=== PATIENT | female | born 1940 | race Caucasian/White ===

== ENCOUNTER → 2016-08-19 | Outpatient (CLI) | payer OTHER ==
[~2016-08-19] MED LIST: ACET-1222 PO; ACETCAP13 PO; ALPH150C PO; ANTIVERT PO; APPL300T3 PO; ASCA500 PO; B-COTAB18 PO; CHOLTAB3 PO; COEN100C7 PO; COLO100C PO; COSAMIN DS PO; CYM/30 PO; DICY20TA35 PO; DOCU100C31 PO; FAMO40TA6 PO; GABA PO; HERB LAX PO; LCARNITINE PO; MAGN1TAB41 PO; MELA1CAP PO; MISCCAP80 PO; MULT-507 PO; NITR-5 PO; NTRGSL/4 UT; OMEG10007 PO; VALA500T60 PO; VITA10004 PO; VLM5 PO; [UNRECOGNIZED DRUG - OTHER] PO
--- NOTE | 2016-08-19 15:06 | ECHOCARDIOGRAM REPORT ---
*NOTICE TO RECEIVING DEMOCRAT AGENCY This information is strictly Confidential and protected under [place] law. [place] law prohibits you from making any further disclosure of this information unless further disclosure is expressly permitted by the written consent of the person to whom it pertains or is authorized by law. A general authorization for the release of medical or other information is not sufficient for this purpose. Hospital accepts no responsibility if the information is made available to any other person, INCLUDING THE PATIENT. Interpretation Summary * Name: DAMARIS POZO Study Date: 08/19/2016 02:00 PM BP: 155/63 mmHg * Patient Location: [facility] HR: 68 * : 1940 (M/d/yyyy) Gender: Female Height: 64 in * Age: 75 yrs Ethnicity: CA Weight: 150 lb * Ordering Physician: Ephraim William * Referring Physician: Ephraim William * Performed By: Cara Marie RDCS * * Reason For Study: MURMUR * BSA: 1.7 m2 * History: MURMUR * -- Conclusions -- * The left ventricle is normal in size. * Ejection Fraction = 60-65%. * Left ventricular systolic function is normal. * The left ventricular wall motion is normal. * There is mild concentric left ventricular hypertrophy. * Grade I diastolic dysfunction, (abnormal relaxation pattern). * There is mild tricuspid regurgitation. * Right ventricular systolic pressure is normal. Procedure Details * A complete two-dimensional transthoracic echocardiogram was performed (2D, M-mode, Doppler and color flow Doppler). Left Ventricle * The left ventricle is normal in size. * There is mild concentric left ventricular hypertrophy. * Ejection Fraction = 60-65%. * Left ventricular systolic function is normal. * The left ventricular wall motion is normal. Right Ventricle * The right ventricle is mildly dilated. * The right ventricular systolic function is normal. Atria * The left atrial size is normal. * Right atrial size is normal. * The interatrial septum is intact with no evidence for an atrial septal defect. Mitral Valve * The mitral valve is normal in structure and function. * There is no mitral regurgitation noted. Tricuspid Valve * The tricuspid valve is normal in structure and function. * There is mild tricuspid regurgitation. * Right ventricular systolic pressure is normal. Aortic Valve * The aortic valve is normal in structure and function. * No hemodynamically significant valvular aortic stenosis. * There is no significant aortic regurgitation. Pulmonic Valve * The pulmonary valve is inadequately visualized, but the Doppler data is adequate for interpretation. * There is no significant pulmonary regurgitation. Great Vessels * The aortic root is normal size. * No obvious dissection could be visualized. * The pulmonary artery is not well visualized, but is probably normal size. Pericardium/Pleural * There is no pericardial effusion. Great Vessels * The inferior vena cava is mildly dilated. Left Ventricular Diastolic Function * Grade I diastolic dysfunction, (abnormal relaxation pattern). MMode 2D Measurements and Calculations IVSd 1.3 cm IVSs 1.5 cm LVIDd 3.8 cm LVIDs 2.6 cm LVPWd 0.97 cm LVPWs 1.6 cm IVS/LVPW 1.3 FS 32.9 % EDV(Teich) 63.4 ml ESV(Teich) 24.0 ml EF(Teich) 62.1 % EDV(cubed) 56.5 ml ESV(cubed) 17.1 ml EF(cubed) 69.8 % % IVS thick 18.3 % % LVPW thick 64.7 % LV mass(C)d 139.5 grams LV mass(C)dI 80.6 grams/m\S\2 LV mass(C)s 137.7 grams LV mass(C)sI 79.6 grams/m\S\2 SV(Teich) 39.4 ml SI(Teich) 22.8 ml/m\S\2 SV(cubed) 39.5 ml SI(cubed) 22.8 ml/m\S\2 Ao root diam 3.1 cm Ao root area 7.3 cm\S\2 LA dimension 3.4 cm LA/Ao 1.1 LVAd ap4 22.4 cm\S\2 LVLd ap4 6.8 cm EDV(MOD-sp4) 59.1 ml EDV(sp4-el) 62.4 ml LVAs ap4 13.1 cm\S\2 LVLs ap4 5.9 cm ESV(MOD-sp4) 25.1 ml ESV(sp4-el) 24.8 ml EF(MOD-sp4) 57.5 % EF(sp4-el) 60.3 % LVAd ap2 24.7 cm\S\2 LVLd ap2 7.4 cm EDV(MOD-sp2) 71.2 ml EDV(sp2-el) 69.8 ml LVAs ap2 13.7 cm\S\2 LVLs ap2 6.2 cm ESV(MOD-sp2) 25.6 ml ESV(sp2-el) 25.7 ml EF(MOD-sp2) 64.0 % EF(sp2-el) 63.2 % LVLd %diff 7.6 % EDV(MOD-bp) 64.7 ml LVLs %diff 5.8 % ESV(MOD-bp) 25.7 ml EF(MOD-bp) 60.2 % SV(MOD-sp4) 34.0 ml SI(MOD-sp4) 19.6 ml/m\S\2 SV(MOD-sp2) 45.5 ml SI(MOD-sp2) 26.3 ml/m\S\2 SV(MOD-bp) 39.0 ml SI(MOD-bp) 22.5 ml/m\S\2 SV(sp4-el) 37.7 ml SI(sp4-el) 21.8 ml/m\S\2 SV(sp2-el) 44.1 ml SI(sp2-el) 25.5 ml/m\S\2 Doppler Measurements and Calculations MV E max suresh 90.7 cm/sec MV A max suresh 117.7 cm/sec MV E/A 0.77 MV dec time 0.28 sec Ao V2 max 104.9 cm/sec Ao max PG 4.4 mmHg Ao max PG (full) 1.6 mmHg LV V1 max PG 2.8 mmHg LV V1 max 83.9 cm/sec TR max suresh 205.7 cm/sec
== END | disposition home or self-care (01) ==
LOC: C.CPL 12:51
PROVIDERS: ATTEND Family Medicine
DX: R07.9 Chest pain, unspecified (principal)

== ENCOUNTER → 2016-09-04 | Outpatient (CLI) | payer OTHER ==
[~2016-09-04] MED LIST changes: +DiphenhydrAMINE HCL 50 MG/ML VIAL ONE
--- NOTE | 2016-09-05 06:59 | PAP/PSG TECHNICIAN REPORT ---
[facility] Production Tester Polysomnogram Report Study name: None Report date: 09/05/2016 Study date: 09/04/2016 Referring Physician: DR NEAL Name: DAMARIS LEÓN Interpreting Physician: Antoine Powell D.O. Date of : 1940 Production Tester: Addy Joseph RPSSUSAN. Sex: Female Age: 75 StudyType: PSG Weight: Height: 75 years, Height 5' 6" BMI: Medications: NONE LISTED Patient History PATIENT HAS HISTORY OF DAYTIME SLEEPINESS AND FATIGUE. MOST OF THE TIME, SHE CAN SLEEP 10-12 HRS A DAY AND STILL FEELS SLEEPY. SHE ALSO HAS WITNESSED APNEAS AND SNORING. SHE IS HERE TODAY FOR AN EVALUATION OF MACI. ESS = 13 RM 6 Parameters Monitored NPSG: E1-M2, E2-M1, Fp1-M2, Fp2-M1, F3-M2, F4-M2, F4-M1, C3-M2, C4-M2, C4-M1, O1-M2, O2-M2, O2-M1, T3-M2, T4-M1, P3-M2, P4-M1, CHIN1, CHIN2, HR, EKG, Legs, PFLOW, SNOR, FLOW, CFLOW, Tidal Volume, THOR, ABDO, SpO2, PLTH, CPRESS, ETCO2 Wave, ETCO2, pH Sleep Architecture Sleep Stages Time at Lights Off 10:12:22 PM STAGES Time (min.) TST (%) Time at Lights On 5:40:52 AM Wake 82.5 -- Total Recording Time (TRT) 449.00 min. N1 25.5 7 Total Sleep Period (TSP) 442.0 min. N2 236.0 64 Total Sleep Time (TST) 366.0min. N3 56.0 15 Awake Time 83.0 min. REM 48.5 13 Wake after Sleep Onset 76.5 min. Sleep Efficiency (SE) 82 % Sleep Onset Latency (YADIRA) 6.0 min. Number of Stage 1 Shifts None Awakenings 21 Stage Changes 86 Number of REM periods 2 REM 48.5 13 REM Latency 123.0 min. NREM 317.5 87 Body Position Analysis Supine Right Left Side Prone Vertical Total Sleep Time (min.) 240.1 182.7 9.2 191.84 0.0 0.0 Total Sleep Time (%) 48% 50% 3% 52 0% N/A% Total Sleep Time REM (min.) 10.0 38.5 0.0 None 0.0 0.0 Total Sleep Time NREM (min.) 164.2 144.2 9.2 None 0.0 0.0 Intermittent Wake (min.) 66.0 16.0 0.5 None 0.0 0.0 Total Sleep Period (%) 53% None None None None None Arousals Myoclonus (PLM) * Events Count Index Events Count Index Spontaneous 27 4 Events Awake (PLMW) 0 0.0 Respiratory 6 1.0 Events Asleep w/ Arousal (PLMA) 11 1.8 PLM 11 2 Events Asleep w/o Arousal (PLMS) 78 12.8 Snoring 2 0 Total Asleep 89 14.6 Total 46 8 Total 89 12 Respiratory Analysis * CA OA MA CH H RERA Total Count 0 5 0 0 21 8 26 Index 0.0 0.8 0.0 0 3.4 1 5.6 Mean Duration 0.0 18.2 0.0 0.00 21.0 15.4 19.3 Longest Duration 0.0 34.8 0.0 0.00 0.0 19.6 47.9 Respiratory Event Summary Total Supine ~Supine Right Left Prone REM NREM Apneas Count 5 0 5 5 0 N/A 5 0 Index 0.8 0 2 1.6 0.0 N/A 6 0 Hypopneas (4% Desat) Count 21 13 8 8 0 N/A 14 7 Index 3.4 4.5 3 2.6 0.0 N/A 17.3 1.3 Apneas & All Hypopneas Count 26 13 13 13 0 N/A 19 7 Index 4.3 4 4 4 0 N/A 23.5 1.3 Respiratory Events (Pallet Sorter+All Hyp+RERA) Count 26 18 16 16 0 N/A 19 7 Index 5.6 6 5 5.3 0.0 N/A 24.7 2.6 Respiratory Related Arousal Count 6 18 2 2 0 N/A 1 5 Index 1.0 1 1 1 0 N/A 1 1 Snoring Analysis Supine Right Left Prone REM NREM Total Snore duration 28.2 min Snores count 201 999 1 N/A 302 899 1,201 Snore mean duration 1.4 Sec Snores index 69 328 7 N/A 373.6 169.9 196.9 TST with snoring (%) 7.7% Desaturation Event Summary: Minimum %SpO2 Event Count Mean/Min/Max Duration(sec.) Desaturation Index % Time In Bed > 90 20 41.1 / 20.0 / 60.3 4.9 56.0 86 - 90 6 29.2 / 20.0 / 51.2 1.9 43.7 81 - 85 0 N/A 0.0 0.2 76 - 80 0 N/A 0.0 0.0 71 - 75 0 N/A 0.0 0.0 66 - 70 0 N/A 0.0 0.0 61 - 65 0 N/A 0.0 0.0 56 - 60 0 N/A 0.0 0.0 51 - 55 0 N/A 0.0 0.0 < 50 0 N/A 0.0 0.0 Total REM NREM Awake <50% 0.0 min. 0.0 min. 0.0 min. 0.0 min. 51 - 60% 0.0 min. 0.0 min. 0.0 min. 0.0 min. 61 - 70% 0.0 min. 0.0 min. 0.0 min. 0.0 min. 71 - 80% 0.0 min. 0.0 min. 0.0 min. 0.0 min. 81 - 90% 193.1 min. 11.7 min. 156.6 min. 24.8 min. 91 - 100% 246.2 min. 36.8 min. 160.1 min. 49.4 min. Average 91 92 90 92 Minimum SpO2 83 84 85 83 Desaturation Event Index 3.1 19.8 1.3 0.0 # Desat. Events below 89% 17 10 7 0 Time(%) with Saturation below 89% 11.6 1.2 8.3 2.0 Time(min.) with Saturation below 89% 50.9 5.3 36.7 9.0 Time (mins) REM (mins) NREM (mins) % of TST SpO2 Below 90% 20 13 N7 25.8 SpO2 Below 88% 11 0 0 4 Heart Rate Analysis Min (bpm) Max (bpm) Average (bpm) Awake 58 81 67 NREM 57 127 65 REM 58 79 65 Overall 57 127 65 Supplemental O2 Values Minimum O2 level: None Value Start Time End Time Production Tester Comments Mrs. León slept in the right, left and supine positions. No cardiac arrhythmia noted. Leg movements noted. No bruxism noted. Snoring was noted and scored as a 3 on a scale of 1 through 5. (0=no snoring, 5=snoring loud enough to be heard through a closed door or down the amaya way) Mrs. León awoke to use the restroom 1 time during the night. Mrs. León stated I did not sleep as well as I do when I am in my own bed. The final report will be interpreted and signed by a sleep physician. The completed physician report will then be placed in the patient medical record. Therapy (cm H2O) 0 TIB (min.) 448.5 TST (min.) 366.0 Sleep Onset (min.) 6.0 REM Onset From Sleep (min.) 123.0 Sleep Efficiency % 82 Wakefulness (%) 18 Wakefulness (min.) 83.0 NREM 1 (%) 7 NREM 1 (min.) 25.5 NREM 2 (%) 64 NREM 2 (min.) 236.0 NREM 3 (%) 15 NREM 3 (min.) 56.0 REM (%) 13 REM (min.) 48.5 # Arousals 46 Arousal Index 8 # Snore 1,201 Snore Index 196.9 AHI 4.3 AHI Supine 4 AHI Non-Supine 4 NREM AHI 1.3 REM AHI 23.5 RDI 5.6 # Obstructive Apnea 5 # Central Apnea 0 # Mixed Apnea 0 # Hypopneas 21 RERAs 8 Total Respiratory Events 34 Time Below SpO2 89% (min.) 41.9 Mean NREM SpO2 (%) 90 Mean REM SpO2 (%) 92 Mean Sleep SpO2 (%) 91 Min NREM SpO2 (%) 85 Min REM SpO2 (%) 84 Position Supine (min.) 240.1 Position Non-supine (min.) 191.8 LM Index Sleep 14.6 LM Index NREM 16.4 LM Index REM 2.5 Mean Heart Rate (bpm) 65 Min Heart Rate (bpm) 57
--- NOTE | 2016-09-09 07:59 | POLYSOMNOGRAPH REPORT ---
REFERRING PHYSICIAN: Ephraim William DATE OF STUDY: 09/04/2016 CLINICAL DATA: The patient is a 75-year-old female. She has complaints of snoring, observed apneas, and excessive daytime somnolence. Her [place] sleepiness scale score is 13 out of a possible 24. This was a diagnostic study in the sleep lab. SLEEP ARCHITECTURE: The total sleep period was 442.0 minutes with a total sleep time of 366.0 minutes. The sleep efficiency was 82%. The sleep onset latency was 6.0 minutes. REM latency was prolonged to 123.0 minutes. There were 2 REM periods during the night. Wake after sleep onset was 76.5 minutes. Sleep consisted of stage N1 7%, stage N2 64%, stage N3 15%, stage REM 13%. AROUSAL DATA: The patient had a total of 46 arousals including 27 spontaneous arousals, 6 respiratory arousals, 11 PLM arousals, and 2 snoring arousals. The overall arousal index was 8. PLM DATA: The patient had a total of 89 periodic limb movements for a PLM index of 14.6 events per hour. There were only 11 periodic limb movements associated with arousals for a PLM arousal index of only 1.8. EKG: The underlying cardiac rhythm was normal sinus. No arrhythmias were noted. Cardiac rates ranged from 57-127. RESPIRATORY DATA: The patient had a total of 5 obstructive apneas and 21 hypopneas. The apnea hypopnea index was 4.3, which is within the limits of normal. She also had 8 RERAs. There a total of 6 respiratory arousals for a respiratory arousal index of 1.0. OXYGENATION DATA: The patient had a minimum oxygen saturation of 83%. Her average saturation was 91%. There were a total of 11 minutes with saturations less than 88%. COLLECTIONS ATTORNEY COMMENTS: Mrs. León slept in the right, left, and supine positions. Snoring was noted and scored as a 3 on a scale of 1 through 5. She awakened to use the bathroom one time during the night. The patient indicated she did not sleep as well as she usually does in her own bed. IMPRESSION: 1. Primary snoring. 2. Mild nocturnal hypoxia. 3. Periodic limb movement disorder. COMMENTS: The patient had a mild number of apneas and hypopneas, but not enough to be definitively abnormal. The apnea hypopnea index as noted was 4.3. She did have moderate snoring. There was a modest number of limb movements but with few arousals. Thus, it seems less likely that the periodic limb movement disorder is significantly contributing to her daytime somnolence. Other reasons for fatigue and daytime somnolence should be considered. RECOMMENDATIONS: 1. It is advised that the patient avoid sleeping in the supine position. Typically one has more snoring and respiratory events in the supine position. 2. Consideration may be given to doing an overnight pulse oximetry study to help determine if she is a candidate for nocturnal oxygen therapy. 3. The patient should be advised of the appropriate principles of sleep hygiene including allowing sufficient sleep time and having a fairly regular sleep-wake schedule. WHITNEY
== END | disposition home or self-care (01) ==
LOC: C.NEUR 21:00
PROVIDERS: ATTEND Family Medicine
DX: R06.83 Snoring (principal); G47.61 Periodic limb movement disorder; G47.34 Idiopathic sleep related nonobstructive alveolar hypoventilation

== ENCOUNTER → 2016-09-16 | Outpatient (CLI) | payer OTHER ==
[2016-09-11 15:09] LABS: CREATININE 0.74 mg/dl (0.60-1.20)
[~2016-09-16] MED LIST changes: -DiphenhydrAMINE HCL 50 MG/ML VIAL ONE; +OPTIRAY 320 IV PRN
--- NOTE | 2016-09-16 09:20 | DIAGNOSTIC IMAGING REPORT ---
CT ABD WITH IV CONTRAST ONLY (CT) CT DOSE: 288.47 mGy.cm CLINICAL HISTORY: Cystic pancreatic mass TECHNIQUE: The patient was scanned in a dynamic helical fashion during intravenous administration of 119 cc Optiray 320. COMPARISON STUDY: CT scan dated 03/19/2010, MRI the abdomen dated 03/04/2016 FINDINGS: The visualized portions of the lung bases reveal mild dependent atelectatic change. No hepatic masses are visualized. There is no ductal dilatation. The portal veins appear patent. The gallbladder appears normal. The spleen appears normal. There is a 5 mm cystic lesion within the pancreatic neck, unchanged from the preceding study. The findings are again typical for a small side branch IPMN. No adrenal masses are visualized. There are tiny renal cysts. No solid renal masses are visualized. There is moderate fluid within the right colon. The appendix appears normal. There is no evidence of abdominal aortic dilatation. There is no pathologic adenopathy. IMPRESSION: Stable 5 mm cystic lesion within the pancreatic neck. The findings are again typical for a small side branch IPMN. Electronically signed by: Gerardo Betancourt M.D. 09/16/2016 9:18 AM Dictated Date/Time: 09/16/2016 9:11 AM
== END | disposition home or self-care (01) ==
LOC: C.CTS 08:03
PROVIDERS: ATTEND Internal Medicine Gastroenterology
DX: K86.2 Cyst of pancreas (principal)

== ENCOUNTER → 2017-04-27 | Outpatient (CLI) | payer OTHER ==
[~2017-04-27] MED LIST changes: +AMLO2.5T PO; +BLOOD PRESSURE PO; +CHOL100010 PO; +MECL1TAB42 PO; -OPTIRAY 320 IV PRN
== END | disposition home or self-care (01) ==
LOC: C.MAMM 15:37
PROVIDERS: ATTEND Family Medicine
DX: R29.890 Loss of height (principal); Z78.0 Asymptomatic menopausal state

== ENCOUNTER → 2017-05-11 | Day surgery (SDC) | payer OTHER ==
[2017-04-27 16:20] VITALS: Ht 165.1 cm; Wt 66.8 kg
--- NOTE | 2017-05-01 23:04 | HISTORY & PHYSICAL EXAMINATION ---
DATE OF ADMISSION: 05/11/2017 CHIEF COMPLAINT: Cataract. HISTORY OF PRESENT ILLNESS: Please see noted by ophthalmology regarding the indication for surgery. PAST MEDICAL HISTORY: 1. Hypertension with left ventricular hypertrophy. 2. Mood disorder. 3. 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 4. Osteoarthritis. 5. Colonic polyposis currently scheduled for colonoscopy. 6. Gastroesophageal reflux disease. PAST SURGICAL HISTORY: Total right knee replacement 04/2015, hysterectomy 1973, laminectomy in 1995. ALLERGIES: PENICILLIN, HIVES, CELEBREX AND GABAPENTIN. MEDICATIONS: Amlodipine 2.5 mg daily, famotidine 40 mg daily, Valium 5 mg daily, Singulair 10 mg daily. FAMILY HISTORY: She is . No alcohol or tobacco use. She works part-time for [employer]. FAMILY HISTORY: Diabetes, kidney disease and gout. REVIEW OF SYSTEMS: She gets mild chest tightness with anxiety and she also has palpitations when she has anxiety. She gets intermittent abdominal cramps due to irritable bowel syndrome. PHYSICAL EXAMINATION: VITAL SIGNS: Blood pressure is 129/75, weight is 148, pulse of 75. GENERAL: She is an alert white female in no apparent distress. HEENT: Normal. See ophthalmology note for exam of the eyes. NECK: Clear. CHEST: Clear to auscultation. CARDIAC: Regular rate without murmur. ABDOMEN: Benign. EXTREMITIES: Normal. ASSESSMENT: 1. Acceptable risk for planned cataract surgery. 2. Other medical problems are stable at this time. PLAN: Continue the above medications without interruption prior to and the day of surgery. No other recommendations regarding the care of this patient. WHITNEY
[~2017-05-11] VITALS: Ht 165.1 cm; Wt 66.8 kg
[~2017-05-11] MED LIST changes: +500ML BSS 0.3ML EPI 1:1000PF IRRIG ONE; +ACETAMINOPHEN 325 MG TAB PO PRN; +AMVISC PLUS 0.8ML SYRINGE INT OCU ONE; -ANTIVERT PO; +ATROPINE SULFATE 0.1 MG/ML 5ML SYR IV PRN; -BLOOD PRESSURE PO; +BSS FLUSH ONE; -CHOLTAB3 PO; -CYM/30 PO; +EpHEDrine SULFATE INJ 50 MG/ML AMP IV PRN; +EpINEphrine INJ 1MG/ML AMP 1 MG/ML AMP ONE; +LACTATED RINGER'S 1000ML 500 ML IV SCH; +LIDOCAINE 3.5% OPH GEL PER APPLICATION CHARGE ONE; +LIDOCAINE HCL 1% MPF 2 ML VIAL ONE; +MIDAZOLAM HCL 1 MG/ML 2ML VIAL ONE; +OCUCOAT 1 ML SOLN IO ONE; +POVIDONE-IODINE OP SOLN 30 ML BTL ONE; +PROPARACAINE 0.5% OP SOLN PER DROP CHARGE OPL SCH; +TOBRAMYCIN/DEXAMETHASONE OPH OINT PER APPLN CHARGE ONE
--- NOTE | 2017-05-11 12:48 | History & Physical Bridge - SC ---
H&P Re-Evaluation Bridge Note: I have examined the patient, reviewed the History & Physical and in the interval since the performance of the History & Physical I have noted the following changes of clinical significance: Diagnosis: Left Cataract Procedure: Left Cataract Removal with Lens Implant No changes noted
[2017-05-11] MEDS: PHENYLEPHRINE HCL 2.5% OP SOLN PER DROP CHARGE OPL SCH ×2 (12:54→12:59)
[2017-05-11] MEDS: TROPICAMIDE 1% OP SOLN PER DROP CHARGE OPL SCH ×2 (12:55→13:00)
[2017-05-11] MEDS: CYCLOPENTOLATE HCL 1% OP SOLN PER DROP CHARGE OPL SCH ×2 (12:56→13:01)
[2017-05-11] MEDS: KETOROLAC 0.5% OP SOLN PER DROP CHARGE OPL SCH ×2 (12:57→13:02)
[2017-05-11] MEDS: GATIFLOXACIN OP SOLN PER DROP CHARGE OPL SCH ×2 (12:58→13:07)
--- NOTE | 2017-05-11 13:25 | Discharge Instructions-SurgCtr ---
Discharge Instructions Date of Service May 11, 2017. Visit Reason for Visit: Cataract Left Eye Discharge Discharge Diagnosis / Problem: cataract Discharge Goals Goal(s): Improve function Activity Recommendations Activity Limitations: per Instructions/Follow-up section Anesthesia . Post Anesthesia Instructions: If you have had General Anesthesia or IV Sedation: * Do not drive today. * Resume driving when surgeon permits. * Do not make important decisions or sign legal documents today. * Call surgeon for: 1. Temperature elevations greater than 101 degrees F. 2. Uncontrollable pain. 3. Excessive bleeding. 4. Persistent nausea and vomiting. 5. Medication intolerance (nausea, vomiting or rash). * For nausea and vomiting use only clear liquids such as: tea, soda, bouillon until nausea subsides, then gradually increase diet as tolerated. * If you have any concerns or questions, call your surgeon's office. If physician is unavailable and it is an emergency, call 911 or go to the nearest emergency room. . Diet Recommendations Home Diet: resume previous diet Procedures Procedures Performed: Left Cataract Phacoemulsification With Intraocular Lens Implant Pending Studies Studies pending at discharge: no Medical Emergencies . Who to Call and When: Medical Emergencies: If at any time you feel your situation is an emergency, please call 911 immediately. . Non-Emergent Contact Non-Emergency issues call your: Pharmaceutical Plant Operator . . "Provider Documentation" section prepared by Zach Florian. .
[2017-05-11 13:26] VITALS: TEMP 36.6
--- NOTE | 2017-05-11 13:26 | [facility] Operative Report ---
Operative Report Date of Service May 11, 2017. Operative Report 1. PREOPERATIVE DIAGNOSIS: Cataract of the left eye. 2. POSTOPERATIVE DIAGNOSIS: Same. 3. PROCEDURE: Phacoemulsification with intraocular lens implantation of the left eye. SURGEON: Dr. Zach Florian. ANESTHESIA: Topical Lidocaine gel, 1% Non- Preserved intracameral Lidocaine, and monitored intravenous sedation. INDICATIONS FOR THE PROCEDURE: The patient is a 76 - year-old female with a history of cataract of the left eye causing significant visual impairment. The details of the proposed procedure were explained to the patient who asked appropriate questions and following discussion of all risks, benefits and alternatives agreed to have the procedure done. 4. OPERATION AND FINDINGS: DESCRIPTION OF PROCEDURE: After informed consent was obtained, the patient was brought to the Operating Room at the [facility]. The patient was placed in a supine position and then the left eye was prepped and draped in the usual sterile fashion for intraocular surgery. A drop of topical Lidocaine gel was placed in the operative eye. A wire lid speculum was then placed in the fornices. A corneal paracentesis was then created temporally. The Non-Preserved Lidocaine was then instilled into the anterior chamber. The anterior chamber was then pressurized with viscoelastic. A 2.0 mm clear corneal incision was then created temporally. A cystotome was inserted into the anterior chamber and used to create a tear in the anterior lens capsule. This capsular tear was then used to create a small flap and the flap was dragged in a counterclockwise direction in order to create a continuous curvilinear capsulorrhexis. Hydrodissection was accomplished with balanced salt solution. Phacoemulsification of the lens nucleus was then performed in a standard [id number] technique. The phaco time was 29 seconds with an average power of 16 %. The remaining cortical material was removed using irrigation aspiration. The capsular bag was then filled with viscoelastic. A [employer] MI60L +27.0 diopters lens was then loaded into the injector and injected into the capsular bag. The remaining viscoelastic was removed with the irrigation aspiration handpiece. The wound was hydrated and then checked and found to be watertight. The intraocular pressure was checked and found to be adequate. The wire lid speculum was removed and the patient's face was cleaned and dried. TobraDex ointment was placed in the inferior fornix. The patient was discharged to the Recovery Room having tolerated the procedure well. There were no complications. The patient will be seen tomorrow in the office for follow-up. I attest to the content of the Intraoperative Record and any orders documented therein. Any exceptions are noted below.
--- NOTE | 2017-05-11 13:44 | Anesthesia Progress Nt - [facility] ---
Anesthesia Post Op Note Date & Time May 11, 2017 at 13:43 Vital Signs Pain Intensity: 0 Vital Signs Past 12 Hours Date Time Temp Pulse Resp B/P (MAP) Pulse Ox O2 Delivery O2 Flow Rate FiO2 05/11/17 13:26 36.6 69 14 121/70 (87) 98 Room Air 05/11/17 12:49 36.8 71 16 133/74 (93) 98 Room Air Notes Mental Status: alert / awake / arousable, participated in evaluation Pt Amnestic to Procedure: Yes Nausea / Vomiting: adequately controlled Pain: adequately controlled Airway Patency, RR, SpO2: stable & adequate BP & HR: stable & adequate Hydration State: stable & adequate Anesthetic Complications: no major complications apparent
[2017-05-11 13:49] VITALS: BP 129/77; PULSE 72; O2SAT 99
== END | disposition home or self-care (01) ==
LOC: X.SURG 12:37
PROVIDERS: ATTEND Ophthalmology
DX: H25.9 Unspecified age-related cataract (principal); I10 Essential (primary) hypertension; K21.9 Gastro-esophageal reflux disease without esophagitis; F39 Unspecified mood [affective] disorder; Z79.899 Other long term (current) drug therapy; Z83.3 Family history of diabetes mellitus; Z84.1 Family history of disorders of kidney and ureter

== ENCOUNTER → 2017-06-01 | Outpatient (CLI) | payer OTHER ==
[~2017-06-01] MED LIST changes: -500ML BSS 0.3ML EPI 1:1000PF IRRIG ONE; -ACETAMINOPHEN 325 MG TAB PO PRN; -AMVISC PLUS 0.8ML SYRINGE INT OCU ONE; -ATROPINE SULFATE 0.1 MG/ML 5ML SYR IV PRN; -BSS FLUSH ONE; -EpHEDrine SULFATE INJ 50 MG/ML AMP IV PRN; -EpINEphrine INJ 1MG/ML AMP 1 MG/ML AMP ONE; +GADAVIST IV PRN; -LACTATED RINGER'S 1000ML 500 ML IV SCH; -LIDOCAINE 3.5% OPH GEL PER APPLICATION CHARGE ONE; -LIDOCAINE HCL 1% MPF 2 ML VIAL ONE; -MIDAZOLAM HCL 1 MG/ML 2ML VIAL ONE; -OCUCOAT 1 ML SOLN IO ONE; -POVIDONE-IODINE OP SOLN 30 ML BTL ONE; -PROPARACAINE 0.5% OP SOLN PER DROP CHARGE OPL SCH; -TOBRAMYCIN/DEXAMETHASONE OPH OINT PER APPLN CHARGE ONE
--- NOTE | 2017-06-01 15:55 | DIAGNOSTIC IMAGING REPORT ---
ABDOMEN COMBO CLINICAL HISTORY: 76 years-old Female presenting with IPMN, follow-up. TECHNIQUE: Multisequence, multiplanar MR imaging of the abdomen was performed before and after the administration of intravenous contrast. IV contrast: 6.5 mL of Gadavist. COMPARISON: MR from 03/04/[address] from 09/16/2016. FINDINGS: Localizer images: Unremarkable. Lung bases: Lung bases clear. Normal heart size. No pericardial or pleural effusion. Liver: Normal morphology. No liver lesion. Patent hepatic vasculature. Biliary: No intrahepatic or extrahepatic biliary ductal dilatation. Normal gallbladder. Pancreas: Stable appearance of the T2 hyperintense nonenhancing cysts millimeter round lesion in the region of the pancreatic neck. No radiographic ductal dilatation or nodular enhancement suggests suspicious features. Spleen: Normal. Adrenal glands: Normal. Kidneys: Mild calyectasis in the left kidney, unchanged. No hydronephrosis. Bowel: Normal. No bowel obstruction. Peritoneal cavity: No free fluid or intraperitoneal gas. Lymph nodes: No enlarged lymph nodes in the abdomen or pelvis. Vasculature: Aorta and IVC patent and normal in caliber. Abdominal wall: Normal. Musculoskeletal: Normal. IMPRESSION: 1. Stable appearance of the subcentimeter cystic lesion in the pancreatic neck consistent with small side branch intraductal papillary mucinous neoplasm or mucinous cyst. This represents stability over one year. Given the size less than 2 cm, this would be considered benign and no further follow-up would be warranted per the [employer] incidental findings committee recommendations. Electronically signed by: Cesar Morillo M.D. 06/01/2017 3:53 PM Dictated Date/Time: 06/01/2017 3:46 PM
== END | disposition home or self-care (01) ==
LOC: C.MRI 14:09
PROVIDERS: ATTEND Family Medicine
DX: D13.6 Benign neoplasm of pancreas (principal); D73.89 Other diseases of spleen

== ENCOUNTER → 2017-06-15 | Day surgery (SDC) | payer OTHER ==
[2017-05-26 15:54] VITALS: Ht 165.1 cm; Wt 66.8 kg
[~2017-06-15] VITALS: Ht 165.1 cm; Wt 66.8 kg
[~2017-06-15] MED LIST changes: +500ML BSS 0.3ML EPI 1:1000PF IRRIG ONE; +ACETAMINOPHEN 325 MG TAB PO PRN; +AMVISC PLUS 0.8ML SYRINGE INT OCU ONE; +ATROPINE SULFATE 0.1 MG/ML 5ML SYR IV PRN; +BSS FLUSH ONE; +EpHEDrine SULFATE INJ 50 MG/ML AMP IV PRN; +EpINEphrine INJ 1MG/ML AMP 1 MG/ML AMP ONE; -GADAVIST IV PRN; +LACTATED RINGER'S 1000ML 500 ML IV SCH; +LIDOCAINE 3.5% OPH GEL PER APPLICATION CHARGE ONE; +LIDOCAINE HCL 1% MPF 2 ML VIAL ONE; +MIDAZOLAM HCL 1 MG/ML 2ML VIAL ONE; +ONDANSETRON INJ 2 MG/ML 2 ML VIAL IV PRN; +POVIDONE-IODINE OP SOLN 30 ML BTL ONE; +PROPARACAINE 0.5% OP SOLN PER DROP CHARGE OPR SCH; +TOBRAMYCIN/DEXAMETHASONE OPH OINT PER APPLN CHARGE ONE
[2017-06-15] MEDS: PHENYLEPHRINE HCL 2.5% OP SOLN PER DROP CHARGE OPR SCH ×2 (07:29→07:35)
[2017-06-15] MEDS: TROPICAMIDE 1% OP SOLN PER DROP CHARGE OPR SCH ×2 (07:30→07:36)
[2017-06-15] MEDS: CYCLOPENTOLATE HCL 1% OP SOLN PER DROP CHARGE OPR SCH ×2 (07:31→07:37)
[2017-06-15] MEDS: KETOROLAC 0.5% OP SOLN PER DROP CHARGE OPR SCH ×2 (07:32→07:38)
[2017-06-15] MEDS: GATIFLOXACIN OP SOLN PER DROP CHARGE OPR SCH ×2 (07:33→07:43)
--- NOTE | 2017-06-15 07:45 | History & Physical Bridge - SC ---
H&P Re-Evaluation Bridge Note: I have examined the patient, reviewed the History & Physical and in the interval since the performance of the History & Physical I have noted the following changes of clinical significance: No changes noted
--- NOTE | 2017-06-15 08:26 | Discharge Instructions-[facility]urgCtr ---
Discharge Instructions Date of Service Jun 15, 2017. Visit Reason for Visit: Cataract Right Eye Discharge Discharge Diagnosis / Problem: cataract Discharge Goals Goal(s): Improve function Activity Recommendations Activity Limitations: per Instructions/Follow-up section Anesthesia . Post Anesthesia Instructions: If you have had General Anesthesia or IV Sedation: * Do not drive today. * Resume driving when surgeon permits. * Do not make important decisions or sign legal documents today. * Call surgeon for: 1. Temperature elevations greater than 101 degrees F. 2. Uncontrollable pain. 3. Excessive bleeding. 4. Persistent nausea and vomiting. 5. Medication intolerance (nausea, vomiting or rash). * For nausea and vomiting use only clear liquids such as: tea, soda, bouillon until nausea subsides, then gradually increase diet as tolerated. * If you have any concerns or questions, call your surgeon's office. If physician is unavailable and it is an emergency, call 911 or go to the nearest emergency room. . Diet Recommendations Home Diet: resume previous diet Procedures Procedures Performed: Right Cataract Phacoemulsification With Intraocular Lens Implant Pending Studies Studies pending at discharge: no Medical Emergencies . Who to Call and When: Medical Emergencies: If at any time you feel your situation is an emergency, please call 911 immediately. . Non-Emergent Contact Non-Emergency issues call your: Art Gilder . . "Provider Documentation" section prepared by Zach Florian. .
--- NOTE | 2017-06-15 08:26 | [facility] Operative Report ---
Operative Report Date of Service Jun 15, 2017. Operative Report 1. PREOPERATIVE DIAGNOSIS: Cataract of the right eye. 2. POSTOPERATIVE DIAGNOSIS: Same. 3. PROCEDURE: Phacoemulsification with intraocular lens implantation of the right eye. SURGEON: Dr. Zach Florian. ANESTHESIA: Topical Lidocaine gel, 1% Non- Preserved intracameral Lidocaine, and monitored intravenous sedation. INDICATIONS FOR THE PROCEDURE: The patient is a 76 - year-old female with a history of cataract of the right eye causing significant visual impairment. The details of the proposed procedure were explained to the patient who asked appropriate questions and following discussion of all risks, benefits and alternatives agreed to have the procedure done. 4. OPERATION AND FINDINGS: DESCRIPTION OF PROCEDURE: After informed consent was obtained, the patient was brought to the Operating Room at the [facility]. The patient was placed in a supine position and then the right eye was prepped and draped in the usual sterile fashion for intraocular surgery. A drop of topical Lidocaine gel was placed in the operative eye. A wire lid speculum was then placed in the fornices. A corneal paracentesis was then created temporally. The Non-Preserved Lidocaine was then instilled into the anterior chamber. The anterior chamber was then pressurized with viscoelastic. A 2.0 mm clear corneal incision was then created temporally. A cystotome was inserted into the anterior chamber and used to create a tear in the anterior lens capsule. This capsular tear was then used to create a small flap and the flap was dragged in a counterclockwise direction in order to create a continuous curvilinear capsulorrhexis. Hydrodissection was accomplished with balanced salt solution. Phacoemulsification of the lens nucleus was then performed in a standard [id number] technique. The phaco time was 26 seconds with an average power of 12 %. The remaining cortical material was removed using irrigation aspiration. The capsular bag was then filled with viscoelastic. A [employer]ch [employer] Lomb MI60L +23.5 diopters lens was then loaded into the injector and injected into the capsular bag. The remaining viscoelastic was removed with the irrigation aspiration handpiece. The wound was hydrated and then checked and found to be watertight. The intraocular pressure was checked and found to be adequate. The wire lid speculum was removed and the patient's face was cleaned and dried. TobraDex ointment was placed in the inferior fornix. The patient was discharged to the Recovery Room having tolerated the procedure well. There were no complications. The patient will be seen tomorrow in the office for follow-up. I attest to the content of the Intraoperative Record and any orders documented therein. Any exceptions are noted below.
--- NOTE | 2017-06-15 08:46 | Anesthesia Progress Nt - [facility] ---
Anesthesia Post Op Note Date & Time Jun 15, 2017 at 08:46 Vital Signs Pain Intensity: 0 Vital Signs Past 12 Hours Date Time Temp Pulse Resp B/P (MAP) Pulse Ox O2 Delivery O2 Flow Rate FiO2 06/15/17 08:28 36.1 62 16 123/70 (87) 97 Room Air 06/15/17 07:20 36.8 69 22 118/70 (86) 95 Room Air Notes Mental Status: alert / awake / arousable, participated in evaluation Pt Amnestic to Procedure: Yes Nausea / Vomiting: adequately controlled Pain: adequately controlled Airway Patency, RR, SpO2: stable & adequate BP & HR: stable & adequate Hydration State: stable & adequate Anesthetic Complications: no major complications apparent
[2017-06-15 08:54] VITALS: BP 138/80; PULSE 53; TEMP 36.5; O2SAT 97
== END | disposition home or self-care (01) ==
LOC: X.SURG 07:09
PROVIDERS: ATTEND Ophthalmology
DX: H26.9 Unspecified cataract (principal); I10 Essential (primary) hypertension; K21.9 Gastro-esophageal reflux disease without esophagitis; M19.90 Unspecified osteoarthritis, unspecified site; F39 Unspecified mood [affective] disorder; Z79.899 Other long term (current) drug therapy

== ENCOUNTER → 2017-10-04 | Outpatient (CLI) | payer OTHER ==
[~2017-10-04] MED LIST changes: -500ML BSS 0.3ML EPI 1:1000PF IRRIG ONE; -ACETAMINOPHEN 325 MG TAB PO PRN; -AMVISC PLUS 0.8ML SYRINGE INT OCU ONE; -ATROPINE SULFATE 0.1 MG/ML 5ML SYR IV PRN; -BSS FLUSH ONE; -EpHEDrine SULFATE INJ 50 MG/ML AMP IV PRN; -EpINEphrine INJ 1MG/ML AMP 1 MG/ML AMP ONE; -LACTATED RINGER'S 1000ML 500 ML IV SCH; -LIDOCAINE 3.5% OPH GEL PER APPLICATION CHARGE ONE; -LIDOCAINE HCL 1% MPF 2 ML VIAL ONE; -MIDAZOLAM HCL 1 MG/ML 2ML VIAL ONE; -ONDANSETRON INJ 2 MG/ML 2 ML VIAL IV PRN; -POVIDONE-IODINE OP SOLN 30 ML BTL ONE; -PROPARACAINE 0.5% OP SOLN PER DROP CHARGE OPR SCH; -TOBRAMYCIN/DEXAMETHASONE OPH OINT PER APPLN CHARGE ONE
--- NOTE | 2017-10-15 10:17 | CODING QUERY NO DIAGNOSIS ---
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 Please assist us with providing a diagnosis/symptom for the test(s) below: A diagnosis/symptom was not documented on your Order. A valid diagnosis/symptom is required to bill all insurances. Please remember that we are unable to code a diagnosis of rule out, probable, possible, questionable, or suspected. Tests that require a diagnosis: DOS: 10/04/17 * URINE CULTURE CLEAN DIAGNOSIS: Provider Signature: Date: Thank you [facility] Information Management Once completed, please kindly fax back to [phone] For questions please call [phone]
== END | disposition home or self-care (01) ==
LOC: C.LABSPEC 14:54
PROVIDERS: ATTEND Family Medicine
DX: N39.0 Urinary tract infection, site not specified (principal)

== ENCOUNTER → 2018-02-10 | Outpatient (CLI) | payer BC ==
[2018-02-10 13:28] LABS: BASO % 0.5 %; BASO ABS # 0.03 K/uL (0-0.2); EOS % 1.2 %; EOS ABS # 0.07 K/uL (0-0.5); HEMOGLOBIN 13.5 g/dL (12.0-16.0); IG# 0.02 K/uL (0.00-0.02); LYMPH % 18.5 %; LYMPH ABS # 1.11 K/uL (1.2-3.4); MEAN CELL VOLUME 94.3 fL (80-100); MEAN CORPUSCULAR HEMOGLOBIN 31.8 pg (25-34); MEAN CORPUSCULAR HGB CONC 33.8 g/dl (32-36); MEAN PLATELET VOLUME 9.7 fL (7.4-10.4); MONO % 7.8 %; MONO ABS # 0.47 K/uL (0.11-0.59); NEUT % 71.7 %; NEUT ABS # 4.29 K/uL (1.4-6.5); PLATELET COUNT 263 K/uL (130-400); RED CELL DISTRIBUTION WIDTH CV 12.6 % (11.5-14.5); WHITE BLOOD COUNT 5.99 K/uL (4.8-10.8)
--- NOTE | 2018-02-10 13:56 | DIAGNOSTIC IMAGING REPORT ---
CHEST 2 VIEWS ROUTINE CLINICAL HISTORY: CHEST PAIN dyspnea COMPARISON STUDY: 04/04/2015 FINDINGS: The bones soft tissues and hemidiaphragms are normal. The cardiomediastinal silhouette is normal. The lungs are clear. The pulmonary vasculature is normal. IMPRESSION: Negative chest. The above report was generated using voice recognition software. It may contain grammatical, syntax or spelling errors. Electronically signed by: Fareed Desai M.D. 02/10/2018 1:54 PM Dictated Date/Time: 02/10/2018 1:54 PM
--- NOTE | 2018-02-10 14:02 | DIAGNOSTIC IMAGING REPORT ---
KUB HISTORY: Back pain. COMPARISON: KUB 04/27/2014. FINDINGS: The bowel gas pattern is unremarkable. There are no dilated loops of small bowel to suggest an obstruction. No renal calculi. No ureteral calculi. No pneumoperitoneum or pneumatosis. Moderate well-formed stool within the colon. IMPRESSION: No renal or ureteral stones. Moderate well-formed stool seen within the colon. Electronically signed by: Peter Garnica M.D. 02/10/2018 2:01 PM Dictated Date/Time: 02/10/2018 2:00 PM
[2018-02-10 14:03] LABS: ALBUMIN 3.6 gm/dl (3.4-5.0); ALKALINE PHOSPHATASE 71 U/L (45-117); ALT/SGPT 37 U/L (12-78); AST/SGOT 27 U/L (15-37); BLOOD UREA NITROGEN 13 mg/dl (7-18); CALCIUM 8.8 mg/dl (8.5-10.1); CARBON DIOXIDE 26 mmol/L (21-32); CREATININE 0.62 mg/dl (0.60-1.20); GLUCOSE 87 mg/dl (70-99); LDL CHOLESTEROL (DIRECT) 62 mg/dl; LIPASE 142 U/L (73-393); SODIUM 141 mmol/L (136-145); TOTAL PROTEIN 6.4 gm/dl (6.4-8.2)
== END | disposition home or self-care (01) ==
LOC: C.LAB 12:53
PROVIDERS: ATTEND Family Medicine
DX: R07.9 Chest pain, unspecified (principal); R10.9 Unspecified abdominal pain

== ENCOUNTER 2022-10-21 10:11 | Observation (INO) ==
--- NOTE | 2022-10-21 11:13 | XRay Report ---
XR chest 1V portable HISTORY: Shortness of breath. Cough. COMPARISON: 08/06/2022. FINDINGS: No new focal lung consolidations to suggest a pneumonia. No evidence for pulmonary edema. T he cardiac silhouette is top normal in size. A few bibasilar linear densities consistent with subsegm ental atelectasis. No pleural effusions. No pneumothorax. IMPRESSION: No acute process. ACT 112: Negative or not required by law. Electronically signed by: Peter Garnica M.D. 10/21/2022 11:12 AM
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
[2022-10-21 11:26] LABS: Basophils # (auto) 0.05 K/uL (0-0.2); Basophils % (auto) 0.6 %; Eosinophils # (auto) 0.25 K/uL (0-0.50); Hematocrit (blood only) 36.9 % (37.0-47.0); Hemoglobin 12.3 g/dl (12.0-16.0); Immature Granulocytes # (auto) 0.09 K/uL (0.01-0.20); Immature Granulocytes % (auto) 1.1 %; Lymphocytes # (auto) 1.14 K/uL (1.2-3.4); Lymphocytes % (auto) 13.6 %; Mean Corpuscular Hemoglobin 31.4 pg (25.0-34.0); Mean Corpuscular Hgb Conc 33.3 g/dL (32.0-36.0); Mean Corpuscular Volume 94.1 fL (80.0-100.0); Mean Platelet Volume 9.3 fL (9.4-12.4); Monocytes # (auto) 0.68 K/uL (0.11-0.59); Monocytes % (auto) 8.1 %; Neutrophils # (auto) 6.18 K/uL (1.40-6.50); Neutrophils % (auto) 73.6 %; Platelet Count 268 K/uL (130-400); RDW Coefficient of Variation 11.9 % (11.5-14.5); RDW Standard Deviation 41.5 fL (36.4-46.3); Red Blood Count 3.92 M/uL (4.20-5.40); White Blood Count 8.39 K/ul (4.8-10.8)
[2022-10-21] MEDS: SODIUM CHLORIDE 0.9% 1000ML 1,000 ML IV SCH ×2 (11:31→18:40)
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
[2022-10-21 11:41] LABS: Albumin Globulin Ratio 1.3 (0.9-2); Albumin Level 3.4 gm/dl (3.4-5.0); BUN Creatinine Ratio 15.4 (10-20); Bilirubin,Total 0.5 mg/dl (0.2-1.0); Calcium 9.2 mg/dl (8.6-10.3); Creatinine Clr Calc Pharmacy 52.5 ml/min; Est GFR (African American) 82.6 ml/min; Est GFR (Non-African American) 71.3 ml/min; Globulin 2.7 gm/dl (2.5-4.0); Magnesium 2.1 mg/dl (1.7-2.4); Potassium 4.2 mmol/L (3.5-5.1); Total Protein 6.1 gm/dl (6.0-8.3)
[2022-10-21 11:45] LABS: Troponin I High Sensitivity 4.9 pg/ml (0-14)
[2022-10-21 12:00] LABS: Lyme Ab IgG w/WB Rflx Negative (Negative); Lyme Ab IgM w/WB Rflx Negative (Negative)
--- NOTE | 2022-10-21 12:00 | Electrocardiogram Report ---
Test Reason : Blood Pressure : / mmHG Vent. Rate : 082 BPM Atrial Rate : 082 BPM P-R Int : 166 ms QRS Dur : 084 ms QT Int : 376 ms P-R-T Axes : 048 -12 028 degrees QTc Int : 439 ms Normal sinus rhythm Normal ECG When compared with ECG of 05-JAN-2022 12:25, T wave inversion no longer evident in Anterior leads Confirmed by Raj Jones ([id number]) on 10/21/2022 12:00:15 PM Referred By: Confirmed By:Raj Jones
[2022-10-21] MEDS ORDERED: KETOROLAC TROMETHAMINE 15 MG/ML VIAL IV ONE (12:06)
[2022-10-21] MEDS ORDERED: MAGNESIUM SULFATE / D5W 1 GM/100 ML BAG IV STA (12:08)
[2022-10-21 12:23] LABS: Adenovirus PCR Not Detected (NotDetected); Bordetella parapertussis PCR Not Detected (NotDetected); Bordetella pertussis PCR Not Detected (NotDetected); Chlamydia pneumoniae PCR Not Detected (NotDetected); Coronavirus 229E PCR Not Detected (NotDetected); Coronavirus CoV-2 (COVID19)PCR Not Detected (NotDetected); Coronavirus HKU1 PCR Not Detected (NotDetected); Coronavirus NL63 PCR Not Detected (NotDetected); Coronavirus OC43PCR Not Detected (NotDetected); Human Metapneumovirus PCR Not Detected (NotDetected); Influenza A PCR Not Detected (NotDetected); Influenza B PCR Not Detected (NotDetected); Mycoplasma pneumoniae PCR Not Detected (NotDetected); Parainfluenza Virus 1 PCR Not Detected (NotDetected); Parainfluenza Virus 2 PCR Not Detected (NotDetected); Parainfluenza Virus 3 PCR Not Detected (NotDetected); Parainfluenza Virus 4 PCR Not Detected (NotDetected); Respiratory Syncytial VirusPCR Not Detected (NotDetected); Rhinovirus/Enterovirus PCR Not Detected (NotDetected)
[2022-10-21] MEDS ORDERED: LIDOCAINE 2% JELLY 5 ML TUBE EXT ONE (13:24)
[2022-10-21] MEDS ORDERED: dexAMETHasone**PF** 10 MG/ML VIAL IV ONE (13:25)
--- NOTE | 2022-10-21 13:25 | XRay Report ---
XR wrist LT 2V CLINICAL HISTORY: Left wrist edema, erythema. COMPARISON: None FINDINGS: No acute fracture is identified on these 2 views. 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 There is moderate radiocarpal joint osteoarthritis. There is left wri st soft tissue swelling. IMPRESSION: 1. No acute fracture or dislocation within the left wrist. 2. Severe left first carpometacarpal joint osteoarthritis. Moderate radiocarpal joint osteoarthritis. 3. Left wrist soft tissue swelling. ACT 112: Negative or not required by law. Electronically signed by: Carlos Gallagher M.D. 10/21/2022 1:24 PM
[2022-10-21] MEDS ORDERED: DICLOFENAC SOD 1% GEL 100 GM TUBE EXT STA (13:37)
[2022-10-21] MEDS ORDERED: ACETAMINOPHEN 1,000 MG/100 ML VIAL IV STA (13:38)
[2022-10-21] MEDS ORDERED: LIDOCAINE 4% CREAM 15 GM TUBE EXT STA (15:05)
[2022-10-21 17:28] LABS: D Dimer 3310 ug/L FEU (0-500)
[2022-10-21] MEDS ORDERED: OPTIRAY 320 500ml IV ONE (18:12)
--- NOTE | 2022-10-21 18:38 | CT Scan Report ---
CHEST CTA for PULMONARY ARTERIES CT DOSE: 448.56 mGy.cm HISTORY: Shortness of breath. TECHNIQUE: Multiaxial CT images of the chest were performed following the intravenous administration of contrast to evaluate the pulmonary arteries. Maximal intensity projection images were also obtaine d. A dose lowering technique was utilized adhering to the principles of ALARA. COMPARISON STUDY: Chest CT 03/04/2021. FINDINGS: Normal caliber thoracic aorta with no evidence for a dissection. The majority of the bilate ral lower lobe segmental and subsegmental pulmonary arteries are nondiagnostic due to the respiratory motion artifact. The remaining pulmonary arteries show no filling defects to suggest a pulmonary emb olus. The heart is normal in size. No pleural or pericardial effusions. There are few subcentimeter t hyroid nodules. No mediastinal or hilar lymphadenopathy. Limited views of the upper abdomen demonstra te a normal liver, spleen, and adrenal glands. Normal esophagus. No pneumothorax. The central airways are patent. A few small scattered linear densities suggesting subsegmental atelectasis or scarring. Otherwise, no focal lung consolidations to suggest a pneumonia. No evidence for pulmonary edema. The tiny hiatus hernia. IMPRESSION: 1. No evidence for a pulmonary embolus with limitations as described above. 2. No focal lung consolidations to suggest a pneumonia. ACT 112: Negative or not required by law. Electronically signed by: Peter Garnica M.D. 10/21/2022 6:35 PM
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
[2022-10-21] MEDS ORDERED: POLYETHYLENE (MIRALAX) 17 GM PACK PO SCH (20:10)
[2022-10-21] MEDS ORDERED: DICYCLOMINE HCL 20 MG TAB PO PRN (20:10)
[2022-10-21] MEDS ORDERED: diazePAM 5 MG TABLET PO PRN (20:10)
[2022-10-21] MEDS ORDERED: traMADol HCL 50 MG TABLET PO PRN (20:10)
[2022-10-21] MEDS ORDERED: amLODIPine BESYLATE 5 MG TAB PO SCH (21:00)
[2022-10-21] MEDS ORDERED: ATORVASTATIN 10 MG TAB PO SCH (21:00)
[2022-10-21] MEDS ORDERED: MONTELUKAST SODIUM 10 MG TABLET PO SCH (21:00)
[2022-10-21 21:44] LABS: C Reactive Protein 22.19 mg/dl (0-0.5)
[2022-10-21] MEDS: BENZONATATE 100 MG CAPSULE PO SCH (22:33)
[2022-10-21] MEDS: PANTOprazole 40 MG TAB PO SCH (22:34)
[2022-10-21] MEDS: buPROPion SR 100 MG TABCR PO SCH (22:34)
[2022-10-21] MEDS ORDERED: COUGH DROP (SUGAR FREE) LOZ 24 LOZ/1 BOX BUCCAL ONE (23:02)
[2022-10-21 23:32] LABS: Appearance Urine Clear (Clear); Bilirubin Urine Negative (Negative); Blood Urine Negative (Negative); Color Urine Yellow; Glucose Urine UA Negative (Negative); Ketones Urine Negative (Negative); Leukocyte Esterase Urine Negative (Negative); Nitrite Urine Negative (Negative); Protein Urine Negative (Negative); Specific Gravity Urine 1.034 (1.000-1.030); Urobilinogen Urine Negative (Negative)
[2022-10-22] MEDS ORDERED: MECLIZINE 12.5 MG TAB PO PRN (05:56)
[2022-10-22 06:28] LABS: Hematocrit (blood only) 37.8 % (37.0-47.0); Hemoglobin 12.9 g/dl (12.0-16.0); Mean Corpuscular Hemoglobin 31.3 pg (25.0-34.0); Mean Corpuscular Hgb Conc 34.1 g/dL (32.0-36.0); Mean Corpuscular Volume 91.7 fL (80.0-100.0); Mean Platelet Volume 9.4 fL (9.4-12.4); Platelet Count 364 K/uL (130-400); RDW Coefficient of Variation 11.5 % (11.5-14.5); RDW Standard Deviation 38.9 fL (36.4-46.3); Red Blood Count 4.12 M/uL (4.20-5.40)
[2022-10-22 06:42] LABS: BUN Creatinine Ratio 18.2 (10-20); Calcium 9.5 mg/dl (8.6-10.3); Creatinine Clr Calc Pharmacy 64.3 ml/min; Est GFR (Non-African American) 82.8 ml/min
[2022-10-22] MEDS: BENZONATATE 100 MG CAPSULE PO SCH ×2 (08:05→13:13)
[2022-10-22] MEDS: buPROPion SR 100 MG TABCR PO SCH (08:06)
[2022-10-22] MEDS: PANTOprazole 40 MG TAB PO SCH (08:09)
[2022-10-22] MEDS ORDERED: Nursing to Pharmacy Communication SCH (09:00)
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
[2022-10-22] MEDS ORDERED: OPTIRAY 350 100ml IV ONE (11:53)
--- NOTE | 2022-10-22 12:37 | CT Scan Report ---
CT FACIAL BONES WITH CONTRAST CLINICAL HISTORY: Elevated CRP/ESR, jaw/dental pain, eval abs/infxn. COMPARISON STUDY: Head CT October 21, 2022. CTA of the neck October 25, 2020. TECHNIQUE: Axial images of the face were obtained following intravenous injection of 85 cc of Optiray 350 IV. Sagittal and coronal reconstructions were viewed. Automated exposure control was utilized fo r the study. A dose lowering technique was utilized adhering to the principles of ALARA. FINDINGS: Visualized portions of the intracranial contents are unremarkable. Orbits are unremarkable. Parotid and submandibular glands are normal. Visualized vessels within upper neck are patent. There is no fluid collection within the face to suggest an abscess. Multiple dental amalgams are noted. Str eak artifact compromises visualization of the adjacent soft tissues but no abnormalities identified. Mastoid air cells are clear. Sinuses are clear. Acute fractures. IMPRESSION: 1. No fluid collection to suggest abscess. 2. Numerous dental amalgams. Streak artifact from amalgam compromises visualization of the adjacent s oft tissues but no significant abnormality is identified. ACT 112: Negative or not required by law. Electronically signed by: Carlos Gallagher M.D. 10/22/2022 12:35 PM
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
[2022-10-22] MEDS ORDERED: POLYETHYLENE (MIRALAX) 17 GM PACK PO SCH (21:00)
[2022-10-22] MEDS ORDERED: PANTOprazole 40 MG TAB PO SCH (21:00)
[2022-10-26 00:22] LABS: Babesia microti DNA Not Detected (Not Detected)
== END 2022-10-22 15:45 | disposition home or self-care (01) ==
LOC: ED 10:11 → 3N 10:11 → SUATTDRO 18:55 → 3N 19:57

== ENCOUNTER 2023-02-11 08:54 | Observation (INO) ==
[2023-02-11] MEDS ORDERED: SODIUM CHLORIDE 0.9% 1000ML 1,000 ML IV SCH (09:30)
--- NOTE | 2023-02-11 09:32 | Emergency Department Note ---
History of Present Illness General Chief complaint: Neuro Symptoms/Deficit Stated complaint: FACE, ARM, LEG NUMB, CHEST PAIN Time Seen by Provider: 02/11/23 09:11 Source: patient, RN notes reviewed and old records reviewed Mode of arrival: ambulatory Limitations: no limitations History of Present Illness Maximum Pain Intensity: 2 This patient 82-year-old female comes in after having multiple complaints including numbness. She has had recent urinary tract infections and has had 3 different antibiotics. They switched her to Levaquin 2 days ago because it was resistant to the one she was on she took 1 dose and felt worse the next morning which was yesterday so she did not take it yesterday. She woke up today and had cramps she has been having cramps in her arms and legs her regular doctor put her on quinine which she did not take when she was on Levaquin. She also noticed that she has some numbness her face and also arms and legs right greater than left but it is bilaterally no weakness. Her vision is okay at present although she did suffer a concussion back in August of this year has been an ongoing issues no significant headache at present. She says she is no urinary symptoms at present. No chest pain or shortness of breath at present. She has fibromyalgia does tend to get intermittent pain she did have a brief episode of chest pain after she drove herself here but she says it feels it was musculoskeletal. No difficulty speaking or swallowing. Home Medications Medication Instructions Recorded Confirmed Type vitamin E 600 unit capsule 600 unit PO DAILY 02/10/19 02/01/23 History Cataplex Vitamin C 2 - 3 tab PO DAILY 08/27/20 02/01/23 History milk thistle 140 mg capsule 140 mg PO DAILY 08/27/20 02/01/23 History polyethylene glycol 3350 17 gram 17 g PO DAILY 08/27/20 02/01/23 History oral powder packet (Miralax) vitamin B complex 1 tab PO DAILY 08/27/20 02/01/23 History zinc 50 mg tablet 50 mg PO DAILY 10/25/20 02/01/23 History cyclosporine 0.05 % eye drops in a ea ophthalmic (eye) 04/14/22 02/01/23 History dropperette dicyclomine 20 mg tablet 20 mg PO QID PRN abdominal 04/14/22 02/01/23 History discomfort estradiol 0.01% (0.1 mg/gram) See Rx Instructions vaginal 04/14/22 02/01/23 History vaginal cream .COMPLEX acetaminophen 650 mg 1,000 mg PO Q12H PRN Pain 07/28/22 02/01/23 History tablet,extended release astragalus root 470 mg capsule mg PO DAILY 07/28/22 02/01/23 History cholecalciferol (vitamin D3) 50 50 mcg PO DAILY 07/28/22 02/01/23 History mcg (2,000 unit) capsule coQ10 (ubiquinol) 100 mg capsule 100 mg PO DAILY 07/28/22 02/01/23 History medium chain triglycerides [MCT PO DAILY 07/28/22 02/01/23 History Oil] turmeric 1 cap PO DAILY 07/28/22 02/01/23 History diclofenac sodium 1 % topical gel 2 g topical BID #100 grams 08/13/22 02/01/23 Rx (Voltaren Arthritis Pain) diazepam 5 mg tablet (Valium) 5 mg PO TID PRN anxiety #90 tabs 08/21/22 02/01/23 Rx tramadol 50 mg tablet 50 mg PO BID PRN pain #60 tabs 09/01/22 02/01/23 Rx amlodipine 2.5 mg tablet (Norvasc) 2.5 mg PO DAILY #90 tabs 10/09/22 02/01/23 Rx atorvastatin 10 mg tablet 10 mg PO DAILY #90 tabs 10/09/22 02/01/23 Rx montelukast 10 mg tablet 10 mg PO DAILY #90 tabs 10/09/22 02/01/23 Rx (Singulair) vit S-H7-E4-magnesium-herbal#173 cap PO 10/13/22 02/01/23 History 50 mg-5 mg-6 mg-5 mg-707.5 mg capsule sucralfate 40 mg PO QID PRN Acid Reflux 10/21/22 02/01/23 History omega-3 acid ethyl esters 1 gram 1 cap PO BID #180 caps 11/04/22 02/01/23 Rx capsule (Lovaza) bupropion HCl 100 mg tablet,12 hr 100 mg PO DAILY #90 ea 12/31/22 02/01/23 Rx sustained-release (Wellbutrin SR) pantoprazole 40 mg tablet,delayed 40 mg PO BID #180 tabs 12/31/22 02/01/23 Rx release valacyclovir 1 gram tablet 1,000 mg PO DAILY #90 tabs 12/31/22 02/01/23 Rx phenazopyridine 100 mg tablet 200 mg PO TID PRN pain 3 days #18 01/05/23 02/01/23 Rx (Pyridium) tabs quinidine sulfate 200 mg tablet 100 mg PO HS #30 tabs 01/21/23 02/01/23 Rx benzonatate 200 mg capsule 200 mg PO TID #7 caps 01/27/23 02/01/23 Rx sulfamethoxazole 800 1 tab PO Q12H 6 days #12 tabs 02/03/23 Rx mg-trimethoprim 160 mg tablet (Bactrim DS) levofloxacin 500 mg tablet 500 mg PO DAILY 8 days #8 tabs 02/09/23 Rx methenamine hippurate 1 gram tablet 1 g PO Q12H #60 tabs 02/09/23 Rx Allergies Allergy/AdvReac Type Severity Reaction Status Date / Time celecoxib [From Celebrex] Allergy Mild gi bleed Verified 02/01/23 12:58 levofloxacin [From Levaquin] Allergy Mild anxiety Verified 02/01/23 12:58 Penicillins Allergy Unknown hives Verified 02/01/23 12:58 gabapentin Allergy Unknown Verified 02/01/23 12:58 rofecoxib [From Vioxx] Allergy Unknown Verified 02/01/23 12:58 aspirin AdvReac Severe GI BLEED Verified 02/01/23 12:58 Past Med/Surg History Medical History Arthritis Atrophic vaginitis Chondritis Chronic constipation Chronic pelvic pain in female Chronic rhinitis COVID-19 Diverticulosis Dysuria Fatigue Foot pain Generalized weakness Hand cramps Herpes simplex Hypertension Hypoxia Impacted cerumen, right ear Inconclusive mammogram IPMN (intraductal papillary mucinous neoplasm) Leg pain, bilateral Major depressive disorder, recurrent Mitral regurgitation Nocturnal hypoxemia Osteopenia Radial head fracture Rectocele 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 Stomach ulcer Stroke syndrome Urinary tract infection Surgical History H/O breast surgery History of Mohs micrographic surgery for skin cancer History of repair of rectocele S/P adenoidectomy S/P arthroscopy of knee S/P bladder repair S/P dilation and curettage S/P hysterectomy S/P tonsillectomy S/P total knee replacement 2015-Right Status post lumbar laminectomy L5-S1 Family History Mother , age 72 Myocardial infarction Diabetes Hypertension Heart disease Tuberculosis lung punctured during biopsy Hypothyroidism Brother Diabetes Hypertension Heart disease Asthma Kidney stone Gout Father Emphysema of lung Hypertension Heart disease Grandfather (Paternal) Prostate cancer Heart disease Unknown Osteoporosis Grandmother (Maternal) , age 79 Fibromyalgia Uncle Alzheimer disease Other No family history of adverse response to anesthesia No family history of bleeding disorder Social History Smoking Status: Never smoker Second Hand Exposure: No; Do You Dip or Chew Tobacco: No; Hx Alcohol Use: No Hx Substance Use: No Preferred Language: Divehi Communication Ability: Effective Credit Union Teller Required: No Beliefs That Will Affect Care: None marital status: / Current Living Situation: Alone 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 Feels Safe at Home: Yes Assistive Devices: Cane and Walker Review of Systems A total of 10 systems reviewed and were otherwise negative Physical Exam Vital Signs Vital Signs - 24 hr 02/11/23 08:57 02/11/23 09:43 02/11/23 09:43 Temperature 36.5 C Temperature Source Temporal Artery Scan Pulse Rate 67 Pulse Rate [Apical] 59 L Pulse Rhythm Regular Pulse Rhythm [Apical] Regular Pulse Strength [Apical] Normal Respiratory Rate 20 20 Respiratory Effort / Characteristics Non-Labored Spontaneous Non-Labored Spontaneous Respiratory Depth Normal Respiratory Pattern Regular Blood Pressure 190/88 H Blood Pressure [Left Arm] 171/71 H Blood Pressure Mean 122 Blood Pressure Mean [Left Arm] 104 Blood Pressure Position [Left Arm] Sitting Pulse Oximetry 99 98 Oxygen Delivery Method Room Air Room Air Room Air Sepsis Recent Fever Within 48 Hours No Sepsis New/Unexplained Change in Mental Status No Sepsis Action Taken by Nursing No Action Required 02/11/23 10:09 02/11/23 10:27 02/11/23 11:02 Temperature Temperature Source Pulse Rate 64 65 Pulse Rate [Apical] 64 Pulse Rhythm Regular Pulse Rhythm [Apical] Regular Pulse Strength [Apical] Normal Respiratory Rate 20 18 Respiratory Effort / Characteristics Non-Labored Spontaneous Respiratory Depth Normal Respiratory Pattern Regular Blood Pressure Blood Pressure [Left Arm] 191/76 H Blood Pressure Mean Blood Pressure Mean [Left Arm] 114 Blood Pressure Position [Left Arm] Pulse Oximetry 96 98 Oxygen Delivery Method Room Air Room Air Sepsis Recent Fever Within 48 Hours Sepsis New/Unexplained Change in Mental Status Sepsis Action Taken by Nursing 02/11/23 11:49 02/11/23 13:00 02/11/23 14:30 Temperature Temperature Source Pulse Rate 54 L Pulse Rate [Apical] 61 61 Pulse Rhythm Pulse Rhythm [Apical] Regular Regular Pulse Strength [Apical] Normal Normal Respiratory Rate 18 18 Respiratory Effort / Characteristics Non-Labored Spontaneous Non-Labored Respiratory Depth Normal Normal Respiratory Pattern Regular Blood Pressure Blood Pressure [Left Arm] 184/71 H 157/83 H Blood Pressure Mean Blood Pressure Mean [Left Arm] 108 107 Blood Pressure Position [Left Arm] Sitting Lying Pulse Oximetry 97 94 Oxygen Delivery Method Room Air Room Air Sepsis Recent Fever Within 48 Hours Sepsis New/Unexplained Change in Mental Status Sepsis Action Taken by Nursing General: Well developed well nourished older female who appears alert and O x3 and in no acute distress, breathing comfortably on room air. Normal speech HEENT: Normal cephalic atraumatic. Pupils are equal round and reactive to light. Extraocular movements are intact. Oropharynx is pink with moist mucous membranes. No swelling of the mouth lips or tongue. Neck: Supple with a midline trachea. No meningeal signs or stiffness, no JVD or bruits. No Stridor. Chest: Clear to auscultation bilaterally. No wheezes or rhonchi. No increased work of breathing. Heart: Regular rate and rhythm without murmurs or gallops. Abdomen: Soft nontender, nondistended without rebound guarding or rigidity. Extremities: No cyanosis clubbing or edema. No calf tenderness or assymetry Spine/Back. Non tender to palpation. No CVA tenderness Skin: Good turgor without rashes. Neurologic exam: Cranial nerves two through 12 are intact. Motor and sensation are intact and symmetrical throughout. Sensation intact to light touch when I t ouch it but she says she feels tingly bilaterally right greater than left Course Administered Medications Discontinued Medications Sodium Chloride (Nss 1000ml) 1,000 mls @ 999 mls/hr IV .Q1H1M TAHIRA Stop: 02/11/23 10:30 Last Infusion: 02/11/23 13:51 Dose: 0 mls/hr Documented By: Admin: 02/11/23 09:54 Dose: 999 mls/hr Documented By: SABINE Medical Decision Making Differential Diagnosis Infection, electrolyte or metabolic abnormality stroke or central neurologic or peripheral neurologic process, sepsis, UTI, fibromyalgia, cardiac disease Medical Records Attestation: I reviewed the patient's medical records. Home Medications Current Medication List: was personally reviewed by me Laboratory Data Attestation: I reviewed the patient's lab results. 02/11/23 09:17 02/11/23 09:17 Lab Results 02/11/23 02/11/23 02/11/23 Range/Units 09:14 09:17 09:17 WBC 6.92 (4.8-10.8) K/ul RBC 3.98 L (4.20-5.40) M/uL Hgb 13.2 (12.0-16.0) g/dl POC Hgb (12.0-16.0) g/dl Hct 39.7 (37.0-47.0) % POC Hct (37-47) % MCV 99.7 (80.0-100.0) fL MCH 33.2 (25.0-34.0) pg MCHC 33.2 (32.0-36.0) g/dL RDW Std Deviation 48.4 H (36.4-46.3) fL RDW Coeff of Tang 13.2 (11.5-14.5) % Plt Count 269 (130-400) K/uL MPV 9.6 (9.4-12.4) fL Immature Gran % (Auto) 0.6 % Neut % (Auto) 49.8 % Lymph % (Auto) 39.0 % Rogers % (Auto) 8.5 % Eos % (Auto) 1.2 % Baso % (Auto) 0.9 % Neut # (Auto) 3.45 (1.40-6.50) K/uL Lymph # (Auto) 2.70 (1.2-3.4) K/uL Rogers # (Auto) 0.59 (0.11-0.59) K/uL Eos # (Auto) 0.08 (0-0.50) K/uL Baso # (Auto) 0.06 (0-0.2) K/uL Immature Gran # (Auto) 0.04 (0.01-0.20) K/uL POC Sodium (135-144) mmol/L Sodium 136 (136-145) mmol/L POC Potassium (3.3-5.0) mmol/L Potassium 3.7 (3.5-5.1) mmol/L POC Chloride (101-112) mmol/L Chloride 105 (98-107) mmol/L Carbon Dioxide 24 (21-32) mmol/L POC Total CO2 (24-31) mmol/L Anion Gap 7 (3-11) POC Anion Gap (16-25) mmol/L POC BUN (7-18) mg/dl BUN 18 (6-23) mg/dl Creatinine 1.05 (0.6-1.2) mg/dl POC Creatinine (0.6-1.3) mg/dl Est Cr Clr Drug Dosing 38.0 ml/min Est GFR ( Amer) 57.3 ml/min Est GFR (Non-Af Amer) 49.4 ml/min BUN/Creatinine Ratio 17.1 (10-20) Glucose 88 (70-99(Fasting)) mg/dl POC Glucose 98 (70-99) mg/dl POC Glucose (other) (70-99) mg/dl Calcium 9.3 (8.6-10.3) mg/dl POC Ioniz Calcium Sophy (1.12-1.32) mmol/l Magnesium 2.1 (1.7-2.4) mg/dl Total Bilirubin 0.8 (0.2-1.0) mg/dl AST 37 (13-39) U/L ALT 34 (7-52) U/L Alkaline Phosphatase 68 (34-104) U/L Troponin I High Sens 2.5 (0-14) pg/ml Total Protein 6.8 (6.0-8.3) gm/dl Albumin 4.6 (3.4-5.0) gm/dl Globulin 2.2 L (2.5-4.0) gm/dl Albumin/Globulin Ratio 2.1 H (0.9-2) TSH (0.300-4.500) uIu/ml Urine Color Urine Appearance (Clear) Urine pH (4.5-7.5) Ur Specific [place] (1.000-1.030) Urine Protein (Negative) Urine Glucose (UA) (Negative) Urine Ketones (Negative) Urine Blood (Negative) Urine Nitrite (Negative) Urine Bilirubin (Negative) Urine Urobilinogen (Negative) Ur Leukocyte Esterase (Negative) SARS-CoV-2, RNA, NAAT (NEGATIVE) 02/11/23 02/11/23 02/11/23 Range/Units 09:17 09:22 11:55 WBC (4.8-10.8) K/ul RBC (4.20-5.40) M/uL Hgb (12.0-16.0) g/dl POC Hgb 13.6 (12.0-16.0) g/dl Hct (37.0-47.0) % POC Hct 40 (37-47) % MCV (80.0-100.0) fL MCH (25.0-34.0) pg MCHC (32.0-36.0) g/dL RDW Std Deviation (36.4-46.3) fL RDW Coeff of Tang (11.5-14.5) % Plt Count (130-400) K/uL MPV (9.4-12.4) fL Immature Gran % (Auto) % Neut % (Auto) % Lymph % (Auto) % Rogers % (Auto) % Eos % (Auto) % Baso % (Auto) % Neut # (Auto) (1.40-6.50) K/uL Lymph # (Auto) (1.2-3.4) K/uL Rogers # (Auto) (0.11-0.59) K/uL Eos # (Auto) (0-0.50) K/uL Baso # (Auto) (0-0.2) K/uL Immature Gran # (Auto) (0.01-0.20) K/uL POC Sodium 138 (135-144) mmol/L Sodium (136-145) mmol/L POC Potassium 3.7 (3.3-5.0) mmol/L Potassium (3.5-5.1) mmol/L POC Chloride 103 (101-112) mmol/L Chloride (98-107) mmol/L Carbon Dioxide (21-32) mmol/L POC Total CO2 23 L (24-31) mmol/L Anion Gap (3-11) POC Anion Gap 17.0 (16-25) mmol/L POC BUN 18 (7-18) mg/dl BUN (6-23) mg/dl Creatinine (0.6-1.2) mg/dl POC Creatinine 1.0 (0.6-1.3) mg/dl Est Cr Clr Drug Dosing ml/min Est GFR ( Amer) ml/min Est GFR (Non-Af Amer) ml/min BUN/Creatinine Ratio (10-20) Glucose (70-99(Fasting)) mg/dl POC Glucose (70-99) mg/dl POC Glucose (other) 92 (70-99) mg/dl Calcium (8.6-10.3) mg/dl POC Ioniz Calcium Sophy 1.24 (1.12-1.32) mmol/l Magnesium (1.7-2.4) mg/dl Total Bilirubin (0.2-1.0) mg/dl AST (13-39) U/L ALT (7-52) U/L Alkaline Phosphatase (34-104) U/L Troponin I High Sens 2.6 (0-14) pg/ml Total Protein (6.0-8.3) gm/dl Albumin (3.4-5.0) gm/dl Globulin (2.5-4.0) gm/dl Albumin/Globulin Ratio (0.9-2) TSH 2.328 (0.300-4.500) uIu/ml Urine Color Urine Appearance (Clear) Urine pH (4.5-7.5) Ur Specific [place] (1.000-1.030) Urine Protein (Negative) Urine Glucose (UA) (Negative) Urine Ketones (Negative) Urine Blood (Negative) Urine Nitrite (Negative) Urine Bilirubin (Negative) Urine Urobilinogen (Negative) Ur Leukocyte Esterase (Negative) SARS-CoV-2, RNA, NAAT (NEGATIVE) 02/11/23 02/11/23 Range/Units Unknown Unknown WBC (4.8-10.8) K/ul RBC (4.20-5.40) M/uL Hgb (12.0-16.0) g/dl POC Hgb (12.0-16.0) g/dl Hct (37.0-47.0) % POC Hct (37-47) % MCV (80.0-100.0) fL MCH (25.0-34.0) pg MCHC (32.0-36.0) g/dL RDW Std Deviation (36.4-46.3) fL RDW Coeff of Tang (11.5-14.5) % Plt Count (130-400) K/uL MPV (9.4-12.4) fL Immature Gran % (Auto) % Neut % (Auto) % Lymph % (Auto) % Rogers % (Auto) % Eos % (Auto) % Baso % (Auto) % Neut # (Auto) (1.40-6.50) K/uL Lymph # (Auto) (1.2-3.4) K/uL Rogers # (Auto) (0.11-0.59) K/uL Eos # (Auto) (0-0.50) K/uL Baso # (Auto) (0-0.2) K/uL Immature Gran # (Auto) (0.01-0.20) K/uL POC Sodium (135-144) mmol/L Sodium (136-145) mmol/L POC Potassium (3.3-5.0) mmol/L Potassium (3.5-5.1) mmol/L POC Chloride (101-112) mmol/L Chloride (98-107) mmol/L Carbon Dioxide (21-32) mmol/L POC Total CO2 (24-31) mmol/L Anion Gap (3-11) POC Anion Gap (16-25) mmol/L POC BUN (7-18) mg/dl BUN (6-23) mg/dl Creatinine (0.6-1.2) mg/dl POC Creatinine (0.6-1.3) mg/dl Est Cr Clr Drug Dosing ml/min Est GFR ( Amer) ml/min Est GFR (Non-Af Amer) ml/min BUN/Creatinine Ratio (10-20) Glucose (70-99(Fasting)) mg/dl POC Glucose (70-99) mg/dl POC Glucose (other) (70-99) mg/dl Calcium (8.6-10.3) mg/dl POC Ioniz Calcium Sophy (1.12-1.32) mmol/l Magnesium (1.7-2.4) mg/dl Total Bilirubin (0.2-1.0) mg/dl AST (13-39) U/L ALT (7-52) U/L Alkaline Phosphatase (34-104) U/L Troponin I High Sens (0-14) pg/ml Total Protein (6.0-8.3) gm/dl Albumin (3.4-5.0) gm/dl Globulin (2.5-4.0) gm/dl Albumin/Globulin Ratio (0.9-2) TSH (0.300-4.500) uIu/ml Urine Color Yellow Urine Appearance Clear (Clear) Urine pH 8.0 H (4.5-7.5) Ur Specific [place] 1.007 (1.000-1.030) Urine Protein Negative (Negative) Urine Glucose (UA) Negative (Negative) Urine Ketones Negative (Negative) Urine Blood Negative (Negative) Urine Nitrite Negative (Negative) Urine Bilirubin Negative (Negative) Urine Urobilinogen Negative (Negative) Ur Leukocyte Esterase Negative (Negative) SARS-CoV-2, RNA, NAAT NEGATIVE (NEGATIVE) Imaging Data Attestation: I personally reviewed and interpreted this imaging study as follows: My Impression: Chest x-rayno acute infiltrate, failure, pneumothorax seen Head CTno hemorrhage or mass effect seen Radiologist's Impression: Chest X-Ray 02/11/23 09:24 XR chest 1V portable HISTORY: 82 years-old Female weakness acute weakness COMPARISON: CTA chest 10/21/2022 TECHNIQUE: AP view of the chest FINDINGS: The cardiac mediastinal and hilar silhouettes are within normal limits. No pneumothorax, pleural effusion, airspace consolidation or pulmonary edema. Bones appear grossly intact. IMPRESSION: No acute process. ACT 112: Negative or not required by law. The above report was generated using voice recognition software. It may contain grammatical, syntax or spelling errors. Electronically signed by: Shailesh Morrison M.D. 02/11/2023 10:[address] 02/11/23 09:24 CT head/brain wo con CLINICAL HISTORY: 82 years-old Female with weakness. Acute weakness TECHNIQUE: Multiple axial CT images of the head were obtained without contrast. A dose lowering technique was utilized adhering to the principles of ALARA. CT DOSE: 625.80 mGy.cm COMPARISON: 10/21/2022 FINDINGS: No acute intracranial hemorrhage, midline shift, intracranial mass, hydrocephalus, territorial ischemia or abnormal extra-axial collection. Involutional changes with chronic microvascular ischemic disease. Cerebral vascular calcifications. The calvarium is intact. Prior bilateral lens repair. The paranasal sinuses, mastoid air cells, and middle ear cavities are clear. IMPRESSION: No acute intracranial abnormality. ACT 112: Negative or not required by law. The above report was generated using voice recognition software. It may contain grammatical, syntax or spelling errors. Electronically signed by: Shailesh Morrison M.D. 02/11/2023 10:27 AM ECG Data Attestation: I personally reviewed and interpreted this ECG as follows: Indication: + weakness Rate (beats per minute): 63 Rhythm: + normal sinus ECG Intervals/blocks: + Normal QRS, + Normal QT and + Normal ID ECG Lyons: + Normal ECG ST segments: + Normal ST segments ECG Findings: no PACs or no PVCs Comparison ECG Date: from (10/21/22) Change: no significant change MDM Narrative This patient comes in as scribed above. She was placed on quality assurance monitor final in room B3. She is having tingling bilaterally right greater than left. On my exam she looks well neurologically she is able to name objects as well she has normal speech. She has no difficulty reading. Finger-nose intact has no tremor. She feels this could be related to her electrolytes. IV acess was established and she was hydrated 1 L IV normal saline bolus. she was placed on quality assurance monitor final .EKG shows normal intervals and no ischemic changes or ectopy. I did also order CAT scan of her head as well as multiple blood testing we reviewed her urine cultures and the last one in the system was pansensitive E. coli. She has no white count or fever to suggest infection. Her urinalysis here is very reassuring and looks normal CAT scan of her head was unremarkable chest x-ray and EKG do not show any definite abnormality troponin x2 was negative. I further talked to her family member at length and also discussed the case with Amanda Childs who is on-call for urology. Apparently the patient had a urine PCR in the urology office which came back with 3 different organisms including E. coli, E faecalis, and Proteus mirabilis that had multiple resistances. Looking at this compared to her most recent culture , I question whether this is a contaminant clinically she does not appear to have a UTI although when I talked her she does have some urinary frequency still. Talking to her family members they think she is a little more confused than normal and just seems a little bit off. She also some tingling still but it seems more diffuse but is greater on the right side. The Levaquin could be responsible for some of her symptoms. However given all of her symptoms I do think she needs to be further evaluated/observed in the hospital have consulted the hospitalist to see her in the ER for these measures. Continuous quality assurance monitor final: Orders placed in EMR for continuous cardiac monitoring: Upon my evaluation patient was noted Impression & Plan Weakness, Tingling in extremities, UTI (urinary tract infection), Myalgia, Lab test negative for COVID-19 virus Discharge Plan Visit Data Chief Complaint: Neuro Symptoms/Deficit Stated Complaint: FACE, ARM, LEG NUMB, CHEST PAIN ED Provider: Brice Paredes Discharge Problem: Weakness, Tingling in extremities, UTI (urinary tract infection), Myalgia, Lab test negative for COVID-19 virus Forms Stand Alone Forms: My [facility] Prescriptions Prescriptions: No Action diclofenac sodium [Voltaren Arthritis Pain] 1 % gel 2 g topical BID Qty: 100 2RF Rx Instructions: apply to single elbow, wrist or hand; for hand includes palm/fingers/back of hand tramadol 50 mg tablet 50 mg PO BID PRN (Reason: pain) Qty: 60 5RF amlodipine [Norvasc] 2.5 mg tablet 2.5 mg PO DAILY Qty: 90 3RF atorvastatin 10 mg tablet 10 mg PO DAILY Qty: 90 3RF montelukast [Singulair] 10 mg tablet 10 mg PO DAILY Qty: 90 3RF omega-3 acid ethyl esters [Lovaza] 1 gram capsule 1 cap PO BID Qty: 180 3RF bupropion HCl [Wellbutrin SR] 100 mg tablet sustained-release 12 hr 100 mg PO DAILY Qty: 90 3RF pantoprazole 40 mg tablet,delayed release (DR/EC) 40 mg PO BID Qty: 180 3RF valacyclovir 1 gram tablet 1,000 mg PO DAILY Qty: 90 3RF phenazopyridine [Pyridium] 100 mg tablet 200 mg PO TID PRN (Reason: pain) 3 Days Qty: 18 1RF Rx Instructions: Take 2 tablets by mouth 3 times a day as needed. Do not take more than 3 days worth quinidine sulfate 200 mg tablet 100 mg PO HS Qty: 30 2RF benzonatate 200 mg capsule 200 mg PO TID Qty: 7 0RF sulfamethoxazole-trimethoprim [Bactrim DS] 800-160 mg tablet 1 tab PO Q12H 6 Days Qty: 12 1RF levofloxacin 500 mg tablet 500 mg PO DAILY 8 Days Qty: 8 0RF methenamine hippurate 1 gram tablet 1 g PO Q12H Qty: 60 3RF vitamin E 600 unit capsule 600 unit PO DAILY cholecalciferol (vitamin D3) 50 mcg (2,000 unit) capsule 50 mcg PO DAILY turmeric 1 cap PO DAILY astragalus root 470 mg capsule PO DAILY medium chain triglycerides [MCT Oil] PO DAILY diazepam [Valium] 5 mg tablet 5 mg PO TID PRN (Reason: anxiety) Qty: 90 5RF vit [id number]-G5-magnesium-hrb #173 80-4-1-5-707.5 mg capsule PO cyclosporine 0.05 % dropperette ophthalmic (eye) estradiol 0.01 % (0.1 mg/gram) cream See Rx Instructions vaginal .COMPLEX Rx Instructions: vaginally small amount daily as directed; dicyclomine 20 mg tablet 20 mg PO QID PRN (Reason: abdominal discomfort) polyethylene glycol 3350 [Miralax] 17 gram Powder In Packet 17 g PO DAILY milk thistle 140 mg Capsule 140 mg PO DAILY vitamin B complex Tablet 1 tab PO DAILY Cataplex Vitamin C 2 - 3 tab PO DAILY acetaminophen 650 mg tablet extended release 1,000 mg PO Q12H PRN (Reason: Pain) zinc 50 mg Tablet 50 mg PO DAILY coQ10 (ubiquinol) 100 mg capsule 100 mg PO DAILY sucralfate 40 mg PO QID PRN (Reason: Acid Reflux) Referrals Referrals: Ephraim William MD [Primary Care Provider] -
[2023-02-11 09:38] LABS: iSTAT Hemoglobin 13.6 g/dl (12.0-16.0); iSTAT Ionized Calcium 1.24 mmol/l (1.12-1.32); iSTAT Potassium 3.7 mmol/L (3.3-5.0)
[2023-02-11 10:10] LABS: Basophils # (auto) 0.06 K/uL (0-0.2); Basophils % (auto) 0.9 %; Eosinophils # (auto) 0.08 K/uL (0-0.50); Eosinophils % (auto) 1.2 %; Hematocrit (blood only) 39.7 % (37.0-47.0); Hemoglobin 13.2 g/dl (12.0-16.0); Immature Granulocytes # (auto) 0.04 K/uL (0.01-0.20); Immature Granulocytes % (auto) 0.6 %; Mean Corpuscular Hemoglobin 33.2 pg (25.0-34.0); Mean Corpuscular Hgb Conc 33.2 g/dL (32.0-36.0); Mean Corpuscular Volume 99.7 fL (80.0-100.0); Mean Platelet Volume 9.6 fL (9.4-12.4); Monocytes # (auto) 0.59 K/uL (0.11-0.59); Monocytes % (auto) 8.5 %; Neutrophils # (auto) 3.45 K/uL (1.40-6.50); Neutrophils % (auto) 49.8 %; Platelet Count 269 K/uL (130-400); RDW Coefficient of Variation 13.2 % (11.5-14.5); RDW Standard Deviation 48.4 fL (36.4-46.3); Red Blood Count 3.98 M/uL (4.20-5.40); White Blood Count 6.92 K/ul (4.8-10.8)
[2023-02-11 10:24] LABS: Albumin Globulin Ratio 2.1 (0.9-2); Albumin Level 4.6 gm/dl (3.4-5.0); BUN Creatinine Ratio 17.1 (10-20); Bilirubin,Total 0.8 mg/dl (0.2-1.0); Calcium 9.3 mg/dl (8.6-10.3); Est GFR (African American) 57.3 ml/min; Est GFR (Non-African American) 49.4 ml/min; Globulin 2.2 gm/dl (2.5-4.0); Magnesium 2.1 mg/dl (1.7-2.4); Potassium 3.7 mmol/L (3.5-5.1); Total Protein 6.8 gm/dl (6.0-8.3)
--- NOTE | 2023-02-11 10:29 | CT Scan Report ---
CT head/brain wo con CLINICAL HISTORY: 82 years-old Female with weakness. Acute weakness TECHNIQUE: Multiple axial CT images of the head were obtained without contrast. A dose lowering tech nique was utilized adhering to the principles of ALARA. CT DOSE: 625.80 mGy.cm COMPARISON: 10/21/2022 FINDINGS: No acute intracranial hemorrhage, midline shift, intracranial mass, hydrocephalus, territorial ischem ia or abnormal extra-axial collection. Involutional changes with chronic microvascular ischemic disea se. Cerebral vascular calcifications. The calvarium is intact. Prior bilateral lens repair. The paranasal sinuses, mastoid air cells, and middle ear cavities are clear. IMPRESSION: No acute intracranial abnormality. ACT 112: Negative or not required by law. The above report was generated using voice recognition software. It may contain grammatical, syntax o r spelling errors. Electronically signed by: Shailesh Morrison M.D. 02/11/2023 10:27 AM
[2023-02-11 10:30] LABS: Troponin I High Sensitivity 2.5 pg/ml (0-14)
--- NOTE | 2023-02-11 10:37 | XRay Report ---
XR chest 1V portable HISTORY: 82 years-old Female weakness acute weakness COMPARISON: CTA chest 10/21/2022 TECHNIQUE: AP view of the chest FINDINGS: The cardiac mediastinal and hilar silhouettes are within normal limits. No pneumothorax, pleural effu gabriel, airspace consolidation or pulmonary edema. Bones appear grossly intact. IMPRESSION: No acute process. ACT 112: Negative or not required by law. The above report was generated using voice recognition software. It may contain grammatical, syntax o r spelling errors. Electronically signed by: Shailesh Morrison M.D. 02/11/2023 10:36 AM
[2023-02-11 11:46] LABS: Appearance Urine Clear (Clear); Bilirubin Urine Negative (Negative); Blood Urine Negative (Negative); Color Urine Yellow; Glucose Urine UA Negative (Negative); Ketones Urine Negative (Negative); Leukocyte Esterase Urine Negative (Negative); Nitrite Urine Negative (Negative); Protein Urine Negative (Negative); Specific Gravity Urine 1.007 (1.000-1.030); Urobilinogen Urine Negative (Negative)
--- NOTE | 2023-02-11 12:55 | Electrocardiogram Report ---
Test Reason : Blood Pressure : / mmHG Vent. Rate : 063 BPM Atrial Rate : 063 BPM P-R Int : 186 ms QRS Dur : 078 ms QT Int : 412 ms P-R-T Axes : 045 -22 010 degrees QTc Int : 421 ms Normal sinus rhythm Normal ECG When compared with ECG of 21-OCT-2022 11:06, No significant change was found Confirmed by Raj Jones ([id number]) on 02/11/2023 12:54:57 PM Referred By: REFERRED SELF Confirmed By:Raj Jones
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
[2023-02-11] MEDS ORDERED: ONDANSETRON 4 MG OD TAB PO PRN (19:35)
[2023-02-11] MEDS ORDERED: ENOXAPARIN INJ 40 MG/0.4 ML SYR SQ SCH (20:00)
[2023-02-11] MEDS ORDERED: Nursing to Pharmacy Communication SCH (20:30)
[2023-02-11] MEDS ORDERED: ATORVASTATIN 10 MG TAB PO SCH (21:00)
[2023-02-11] MEDS ORDERED: amLODIPine BESYLATE 5 MG TAB PO SCH (21:00)
[2023-02-11] MEDS: PANTOprazole 40 MG TAB PO SCH (21:55)
[2023-02-11] MEDS ORDERED: diazePAM 5 MG TABLET PO ONE (22:16)
[2023-02-11] MEDS: guaiFENesin 600 MG TABCR PO SCH (22:18)
[2023-02-11] MEDS ORDERED: LORazepam 2 MG/1 ML VIAL IV ONE (22:22)
[2023-02-11] MEDS ORDERED: diazePAM 5 MG TABLET PO PRN (22:35)
[2023-02-11] MEDS ORDERED: DICYCLOMINE HCL 20 MG TAB PO PRN (22:35)
[2023-02-11] MEDS: BENZONATATE 100 MG CAPSULE PO SCH (22:43)
[2023-02-11] MEDS: ARTIFICIAL TEARS OPB SCH (22:52)
[2023-02-11] MEDS: ACETAMINOPHEN 325 MG TAB PO PRN (23:03)
--- NOTE | 2023-02-12 02:34 | Magnetic Resonance Report ---
Exam(s): MRI HEAD Without Contrast EXAM: MR Head Without Intravenous Contrast CLINICAL HISTORY: Reason for exam: r/o stroke. TECHNIQUE: Magnetic resonance images of the head/brain without intravenous contrast in multiple planes. COMPARISON: MRI 10/31/2020 FINDINGS: Brain: Unremarkable. No mass. No hemorrhage. No acute infarct. Mild periventricular and subcortical T2/flair signal abnormalities consistent with mild chronic microvascular ischemic changes. Ventricles: Unremarkable. No ventriculomegaly. Bones/joints: Unremarkable. Sinuses: Unremarkable as visualized. No acute sinusitis. Mastoid air cells: Unremarkable as visualized. No mastoid effusion. Orbits: Unremarkable as visualized. IMPRESSION: No acute intracranial abnormality. Electronically signed by: Rasheed Tovar MD 02/12/23 02:33 AM
--- NOTE | 2023-02-12 03:55 | Magnetic Resonance Report ---
Exam(s): MRI C SPINE EXAM: MR Cervical Spine Without Intravenous Contrast CLINICAL HISTORY: Reason for exam: right sided numbness ?central cord compression. TECHNIQUE: Magnetic resonance images of the cervical spine without intravenous contrast in multiple planes. COMPARISON: No relevant prior studies available. FINDINGS: No fracture or malalignment. Vertebral body heights are preserved. No marrow replacing lesion. Mild degenerative disc disease most pronounced at C5-6 and C6-7. No spinal canal or foraminal stenosis. Cord signal is normal. No epidural collection. Soft tissues are unremarkable. IMPRESSION: Mild degenerative disc disease. No spinal canal or foraminal stenosis. Electronically signed by: Rasheed Tovar MD 02/12/23 03:54 AM
[2023-02-12 07:44] LABS: Estimated Average Glucose 82 mg/dl; Hemoglobin A1C 4.5 % (4.5-5.6)
[2023-02-12 08:10] LABS: Anion Gap 6 (3-11); BUN Creatinine Ratio 19.5 (10-20); Blood Urea Nitrogen 16 mg/dl (6-23); C Reactive Protein < 0.50 mg/dl (0-0.5); Calcium 8.8 mg/dl (8.6-10.3); Carbon Dioxide 23 mmol/L (21-32); Chloride 111 mmol/L (98-107); Creatinine Clr Calc Pharmacy 47.9 ml/min; Est GFR (African American) 77.2 ml/min; Est GFR (Non-African American) 66.6 ml/min; Glucose 98 mg/dl (70-99(Fasting)); Magnesium 2.1 mg/dl (1.7-2.4); Potassium 3.8 mmol/L (3.5-5.1); Sodium 140 mmol/L (136-145)
[2023-02-12] MEDS: PANTOprazole 40 MG TAB PO SCH (08:57)
[2023-02-12] MEDS: guaiFENesin 600 MG TABCR PO SCH (08:57)
[2023-02-12] MEDS: BENZONATATE 100 MG CAPSULE PO SCH (08:57)
[2023-02-12] MEDS: ARTIFICIAL TEARS OPB SCH ×2 (08:58→12:38)
[2023-02-12] MEDS ORDERED: POLYETHYLENE (MIRALAX) 17 GM PACK PO SCH (09:00)
[2023-02-12] MEDS ORDERED: valACYclovir HCL 500 MG TABLET PO SCH (09:00)
[2023-02-12] MEDS ORDERED: MONTELUKAST SODIUM 10 MG TABLET PO SCH ×2 (09:00→21:00)
[2023-02-12] MEDS ORDERED: buPROPion SR 100 MG TABCR PO SCH (09:00)
[2023-02-12] MEDS ORDERED: amLODIPine BESYLATE 5 MG TAB PO SCH (09:00)
[2023-02-12] MEDS ORDERED: ATORVASTATIN 10 MG TAB PO SCH (09:00)
[2023-02-12] MEDS: ACETAMINOPHEN 325 MG TAB PO PRN (09:06)
[2023-02-12 09:35] LABS: Basophils # (auto) 0.05 K/uL (0-0.2); Basophils % (auto) 0.7 %; Eosinophils # (auto) 0.09 K/uL (0-0.50); Eosinophils % (auto) 1.3 %; Hematocrit (blood only) 35.9 % (37.0-47.0); Hemoglobin 12.2 g/dl (12.0-16.0); Immature Granulocytes # (auto) 0.03 K/uL (0.01-0.20); Immature Granulocytes % (auto) 0.4 %; Lymphocytes # (auto) 2.85 K/uL (1.2-3.4); Lymphocytes % (auto) 42.7 %; Mean Corpuscular Hemoglobin 33.6 pg (25.0-34.0); Mean Corpuscular Volume 98.9 fL (80.0-100.0); Mean Platelet Volume 9.7 fL (9.4-12.4); Monocytes # (auto) 0.64 K/uL (0.11-0.59); Monocytes % (auto) 9.6 %; Neutrophils # (auto) 3.02 K/uL (1.40-6.50); Neutrophils % (auto) 45.3 %; Platelet Count 244 K/uL (130-400); RDW Coefficient of Variation 13.2 % (11.5-14.5); RDW Standard Deviation 47.9 fL (36.4-46.3); Red Blood Count 3.63 M/uL (4.20-5.40); White Blood Count 6.68 K/ul (4.8-10.8)
[2023-02-12] MEDS ORDERED: Nursing to Pharmacy Communication SCH (09:45)
--- NOTE | 2023-02-12 14:46 | Urology Consultation ---
Date of Consultation February 12, 2023 Assessment & Plan (1) UTI (urinary tract infection): Plan 82yo/F admitted with right sided weakness/numbness and UTI. She is afebrile and hemodynamically stable. Labs show no leukocytosis and normal renal function. Urinalysis on arrival without signs of infection or blood. Urine culture pending. She had a recent urine PCR outpatient that grew E. coli, Proteus, Enterococcus with oral sensitivities including Levaquin and fosfomycin. She was initially treated with Levaquin but was unable to tolerate and developed side effects. She has not received any antibiotics while inpatient. We discussed recommendation to treat the infection due to recent issues with recurrent infections. We discussed fosfomycin as an oral option versus IV antibiotics. Patient states she is likely going home today. Will discuss with hospital team regarding fosfomycin on discharge. She is agreeable. She is currently scheduled on 03/08 for outpatient cystoscopy and plans to keep as scheduled. We discussed that further options for recurrent UTIs and preventative therapies can be discussed at this time. Urology will sign off. Please contact us with any further questions, concerns, or changes in patient status. History of Present Illness Attending Physician: Chepe Arrington DO History of Present Illness 82 yo female with PMHx of recurrent UTI, HTN, HLD, long covid, fibromyalgia, anxiety, urinary incontinence, GERD, and constipation admitted with right-sided numbness/weakness and UTI. Urology asked to evaluate patient due to recurrent UTI. Patient recently had a urine PCR as an outpatient that grew E. coli, Proteus, Enterococcus with a resistant pattern. Oral sensitivities included fosfomycin and Levaquin. She treated with levaquin but was unable to tolerate the Levaquin and developed side effects which prompted her arrival in the ED. Her urinalysis in the ED was negative for blood or signs of infection. She also denied UTI symptoms. Patient was examined at bedside today. She is awake, resting in bed on arrival. No acute distress. She currently denies UTI symptoms. Denies fevers, chills, nausea, vomiting. Denies hematuria or dysuria. Feels she is emptying her bladder well. Denies abdominal or flank pain. Reports the weakness/numbness has improved. She is undergoing further work-up per primary team for this. Allergies Allergy/AdvReac Type Severity Reaction Status Date / Time celecoxib [From Celebrex] Allergy Mild gi bleed Verified 02/11/23 17:22 levofloxacin [From Levaquin] Allergy Mild leg cramps Verified 02/11/23 17:22 /anxiety Penicillins Allergy Unknown hives Verified 02/11/23 17:22 gabapentin Allergy Unknown Verified 02/11/23 17:22 rofecoxib [From Vioxx] Allergy Unknown Verified 02/11/23 17:22 tramadol Allergy Hives Verified 02/11/23 17:26 aspirin AdvReac Severe GI BLEED Verified 02/11/23 17:22 Home Medications Medication Instructions Recorded Confirmed Type vitamin E 600 unit capsule 600 unit PO DAILY 02/10/19 02/11/23 History Cataplex Vitamin C 2 - 3 tab PO DAILY 08/27/20 02/11/23 History milk thistle 140 mg capsule 140 mg PO DAILY 08/27/20 02/11/23 History polyethylene glycol 3350 17 gram 17 g PO DAILY 08/27/20 02/11/23 History oral powder packet (Miralax) vitamin B complex 1 tab PO DAILY 08/27/20 02/11/23 History dicyclomine 20 mg tablet 20 mg PO QID PRN abdominal 04/14/22 02/11/23 History discomfort estradiol 0.01% (0.1 mg/gram) See Rx Instructions vaginal 04/14/22 02/11/23 History vaginal cream .COMPLEX acetaminophen 650 mg 1,000 mg PO Q12H PRN Pain 07/28/22 02/11/23 History tablet,extended release astragalus root 470 mg capsule 470 mg PO DAILY 07/28/22 02/11/23 History cholecalciferol (vitamin D3) 50 50 mcg PO DAILY 07/28/22 02/11/23 History mcg (2,000 unit) capsule coQ10 (ubiquinol) 100 mg capsule 100 mg PO DAILY 07/28/22 02/11/23 History turmeric 1 cap PO DAILY 07/28/22 02/11/23 History diclofenac sodium 1 % topical gel 2 g topical BID #100 grams 08/13/22 02/11/23 Rx (Voltaren Arthritis Pain) diazepam 5 mg tablet (Valium) 5 mg PO TID PRN anxiety #90 tabs 08/21/22 02/11/23 Rx tramadol 50 mg tablet 50 mg PO BID PRN pain #60 tabs 09/01/22 02/11/23 Rx amlodipine 2.5 mg tablet (Norvasc) 2.5 mg PO DAILY #90 tabs 10/09/22 02/11/23 Rx atorvastatin 10 mg tablet 10 mg PO DAILY #90 tabs 10/09/22 02/11/23 Rx montelukast 10 mg tablet 10 mg PO DAILY #90 tabs 10/09/22 02/11/23 Rx (Singulair) sucralfate 40 mg PO QID PRN Acid Reflux 10/21/22 02/11/23 History omega-3 acid ethyl esters 1 gram 1 cap PO BID #180 caps 11/04/22 02/11/23 Rx capsule (Lovaza) bupropion HCl 100 mg tablet,12 hr 100 mg PO DAILY #90 ea 12/31/22 02/11/23 Rx sustained-release (Wellbutrin SR) pantoprazole 40 mg tablet,delayed 40 mg PO BID #180 tabs 12/31/22 02/11/23 Rx release valacyclovir 1 gram tablet 1,000 mg PO DAILY #90 tabs 12/31/22 02/11/23 Rx quinidine sulfate 200 mg tablet 100 mg PO HS #30 tabs 01/21/23 02/11/23 Rx methenamine hippurate 1 gram tablet 1 g PO Q12H #60 tabs 02/09/23 02/11/23 Rx carboxymethylcellulose sodium 1 % 1 drp ophthalmic (eye) DIRECTED 02/11/23 02/11/23 History eye liquid gel drops lifitegrast 5 % eye drops in a 1 drp OPB BID 02/11/23 02/11/23 History dropperette (Xiidra) fosfomycin tromethamine 3 gram 3 g PO ONCE 1 day #1 ea 02/12/23 Rx oral packet Patient History Medical History Arthritis Atrophic vaginitis Chondritis Chronic constipation Chronic pelvic pain in female Chronic rhinitis COVID-19 Diverticulosis Dysuria Fatigue Foot pain Generalized weakness Hand cramps Herpes simplex Hypertension Hypoxia Impacted cerumen, right ear Inconclusive mammogram IPMN (intraductal papillary mucinous neoplasm) Leg pain, bilateral Major depressive disorder, recurrent Mitral regurgitation Nocturnal hypoxemia Osteopenia Radial head fracture Rectocele 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 Stomach ulcer Stroke syndrome Urinary tract infection Surgical History H/O breast surgery History of Mohs micrographic surgery for skin cancer History of repair of rectocele S/P adenoidectomy S/P arthroscopy of knee S/P bladder repair S/P dilation and curettage S/P hysterectomy S/P tonsillectomy S/P total knee replacement 2015-Right Status post lumbar laminectomy [id number] Family History Mother , age 72 Myocardial infarction Diabetes Hypertension Heart disease Tuberculosis lung punctured during biopsy Hypothyroidism Brother Diabetes Hypertension Heart disease Asthma Kidney stone Gout Father Emphysema of lung Hypertension Heart disease Grandfather (Paternal) Prostate cancer Heart disease Unknown Osteoporosis Grandmother (Maternal) , age 79 Fibromyalgia Uncle Alzheimer disease Other No family history of adverse response to anesthesia No family history of bleeding disorder Social History Smoking Status: Never smoker Second Hand Exposure: No; Do You Dip or Chew Tobacco: No; Hx Alcohol Use: No Hx Substance Use: No Preferred Language: Dominican Communication Ability: Effective Customer Service Sales Associate Required: No Beliefs That Will Affect Care: None marital status: / Current Living Situation: Alone 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 Feels Safe at Home: Yes Assistive Devices: None Review of Systems Review of Systems: All systems reviewed & are unremarkable except as noted in HPI & below Physical Exam Constitutional: well developed and well nourished; no acute distress Respiratory: normal respiratory effort; no respiratory distress and no labored breathing Musculoskeletal: Head/Neck/Chest: normocephalic Skin: No visible rashes or lesions to exposed skin areas Neurologic: moves all extremities and awake Psychiatric: A+Ox3, euthymic affect Results & Data Vital Signs (Past 12 Hours) Vital Signs Temp Pulse Resp BP Pulse Ox O2 Del Method 02/12/23 07:30 36.5 C 59 L 14 100/55 L 97 Room Air PG Care Time/CCT Total # of Minutes Spent Total Time Spent with Patient: Total time spent is greater than 50% in coordination of care (as documented) at patient's floor/unit and/or counseling patient: Coding Level of Care Code 29957 INT INP/OBS CARE MIN Diagnoses UTI (urinary tract infection) N39.0 Hematuria presence: without hematuria Urinary tract infection type: site unspecified (1) UTI (urinary tract infection) Hematuria presence: without hematuria Urinary tract infection type: site unspecified Qualified Code(s): N39.0 - Urinary tract infection, site not specified
--- NOTE | 2023-02-24 08:36 | Billing Data ---
Date of Service February 11, 2023 Coding Level of Care Code 59530 INT INP/OBS CARE
== END 2023-02-12 16:31 | disposition home or self-care (01) ==
LOC: 3N 08:54 → ED 08:54 → SUATTDRO 16:39 → 3N 18:58
DX: Z88.0 Allergy status to penicillin; Z88.6 Allergy status to analgesic agent; K21.9 Gastro-esophageal reflux disease without esophagitis; R07.9 Chest pain, unspecified; R41.89 Other symptoms and signs involving cognitive functions and awareness; F07.81 Postconcussional syndrome; Z88.8 Allergy status to other drugs, medicaments and biological substances; Z79.899 Other long term (current) drug therapy; M79.7 Fibromyalgia; U09.9 Post COVID-19 condition, unspecified; R29.818 Other symptoms and signs involving the nervous system; F41.9 Anxiety disorder, unspecified; R06.02 Shortness of breath; I10 Essential (primary) hypertension; K59.09 Other constipation; E78.5 Hyperlipidemia, unspecified; N39.0 Urinary tract infection, site not specified; H90.A21 Sensorineural hearing loss, unilateral, right ear, with restricted hearing on the contralateral side; Z20.822 Contact with and (suspected) exposure to COVID-19; R20.0 Anesthesia of skin; R32 Unspecified urinary incontinence